=== PATIENT | male | born 1935 | race Caucasian/White ===

== ENCOUNTER 2020-05-25 13:05 | Inpatient (IN) | payer MEDICARE, OTHER ==
--- NOTE | 2020-05-25 15:29 | CR ---
CHEST: 2 view CLINICAL HISTORY:Shortness of breath, leukocytosis COMPARISON:None FINDINGS: Heart size is normal. Pulmonary vascularity is mildly cephalized. This may be chronic. There is some patchy density seen posteriorly on the lateral image. There is some increased lung markings in both lung bases on the PA. There are no effusions. There are atherosclerotic changes in the aorta. IMPRESSION: Increased lung markings in both bases are suspect for pneumonia
--- NOTE | 2020-05-25 17:02 | EDM.PDOC ---
ED HPI GENERAL MEDICAL PROBLEM - General Chief Complaint: General Stated Complaint: CHILLS Time Seen by Provider: 05/25/20 16:58 Source of Information: Reports: Patient, Family History Limitations: Reports: No Limitations - History of Present Illness INITIAL COMMENTS - FREE TEXT/NARRATIVE: pt had shaking chills and sweats during the nite. He had some pain in his left chest with deep breathing yesterday. Today that discomfort is better. r Onset: Other ( started yesterday, He had chills all nite, ) Duration: Hour(s): Location: Reports: Chest, Other (pt did feel sob and he has some pain when he took a deep breath in the left chest. ) Associated Symptoms: Reports: Cough, Fever/Chills, Shortness of Breath, Weakness - Related Data Allergies Allergy/AdvReac Type Severity Reaction Status Date / Time MAYNOR Inhibitors Allergy Swelling Verified 08/07/18 07:06 sulfamethoxazole Allergy Swelling Verified 08/07/18 07:06 [From ] trimethoprim [From ] Allergy Swelling Verified 08/07/18 07:06 Home Meds: Home Meds Furosemide [Lasix] 80 mg PO DAILY 10/19/13 [History] Garlic 1,000 mg PO BID 10/19/13 [History] Insulin Glargine,Hum.Rec.Anlog [Lantus Solostar] 70 units SUBCUT DAILY 10/19/13 [History] Insulin Lispro [Humalog] 40 units SQ TID 10/19/13 [History] Isosorbide Mononitrate [Imdur] 30 mg PO DAILY 10/19/13 [History] Multivitamins 1 each PO DAILY 10/19/13 [History] [place]-3 Fatty Acids [[place]-3] 1,000 mg PO TID 10/19/13 [History] Psyllium Husk [Metamucil] 1 cap PO DAILY 10/19/13 [History] Rosuvastatin [Crestor] 20 mg PO BEDTIME 10/19/13 [History] Allopurinol [Zyloprim] 100 mg PO DAILY 09/22/15 [History] Cholecalciferol (Vitamin D3) [Vitamin D3] 2,000 unit PO BID 09/22/15 [History] Cinnamon Bark [Cinnamon] 1,000 mg PO BID 09/22/15 [History] Spironolactone [Aldactone] 25 mg PO DAILY 09/22/15 [History] Aspirin [Adult Low Dose Aspirin EC] 81 mg PO DAILY 01/29/18 [History] Metoprolol Tartrate [Lopressor] 50 mg PO DAILY 01/29/18 [History] Omeprazole 40 mg PO DAILY 01/29/18 [History] amLODIPine Besylate [Amlodipine Besylate] 5 mg PO BID 01/29/18 [History] Umeclidinium Brm/Vilanterol Tr [Anoro Ellipta 62.5-25 MCG] 1 puff INH DAILY 06/18/18 [History] metFORMIN [Glucophage] 500 mg PO BID 06/18/18 [History] Furosemide [Lasix] 40 mg PO DAILY 05/25/20 [History] Gabapentin [Neurontin] 100 mg PO TID 05/25/20 [History] Latanoprost [Xalatan 0.005% Ophth Soln] 1 drop EYEBOTH BEDTIME 05/25/20 [History] Metoprolol Tartrate [Lopressor] 25 mg PO BEDTIME 05/25/20 [History] Past Medical History HEENT History: Reports: Cataract, Glaucoma, Impaired Vision Other HEENT History: wears glasses Cardiovascular History: Reports: Heart Failure, High Cholesterol, Hypertension, [place], SOB on Exertion Respiratory History: Reports: COPD, SOB Gastrointestinal History: Reports: Colon Polyp, GERD, Hemorrhoids Genitourinary History: Reports: Chronic Renal Insuffiency, Prostate Disorder Other Genitourinary History: stage 3 kidney disease Musculoskeletal History: Reports: Back Pain, Chronic, Fracture Neurological History: Reports: Concussion Endocrine/Metabolic History: Reports: Diabetes, Type II, Hyperparathyroidism, Obesity/BMI 30+ - Infectious Disease History Infectious Disease History: Reports: Chicken Pox, Measles, Mumps Other Infectious Disease History: unknown - Past Surgical History HEENT Surgical History: Reports: Cataract Surgery GI Surgical History: Reports: Colonoscopy, Polypectomy Male Surgical History: Reports: Circumcision, TURP-Transurethral Resection of Prostate Endocrine Surgical History: Reports: Parathyroidectomy Social & Family History - Tobacco Use Smoking Status *Q: Never Smoker - Caffeine Use Caffeine Use: Reports: None - Recreational Drug Use Recreational Drug Use: No ED ROS GENERAL - Review of Systems Review Of Systems: See Below Constitutional: Reports: Fever, Chills, Malaise HEENT: Reports: No Symptoms Respiratory: Reports: Shortness of Breath, Pleuritic Chest Pain, Other (pain was on the left side. ) Cardiovascular: Reports: No Symptoms Endocrine: Reports: No Symptoms GI/Abdominal: Reports: No Symptoms : Reports: No Symptoms Musculoskeletal: Reports: No Symptoms Skin: Reports: No Symptoms ED EXAM, GENERAL - Physical Exam Exam: See Below Free Text/Narrative:: pt arrived with sob and pleuritic chest pain on the left. He had shaing chills during the nite. Exam Limited By: No Limitations General Appearance: Alert, No Apparent Distress, Anxious, Other (pt does not have thepleuritic chest pain tody, ) Ears: Normal TMs Nose: Normal Inspection Throat/Mouth: Normal Inspection Head: Atraumatic Neck: Normal Inspection Respiratory/Chest: No Respiratory Distress, Other ( rales at the lung bases) Cardiovascular: Regular Rate, Rhythm GI/Abdominal: Soft, Non-Tender (Male) Exam: Deferred Rectal (Males) Exam: Deferred Back Exam: Normal Inspection Extremities: Normal Inspection Neurological: Alert, Oriented, Normal Cognition Course - Vital Signs Last Recorded V/S: Last Vital Signs Temp 37.7 C 05/25/20 15:40 Pulse 93 05/25/20 15:40 Resp 18 05/25/20 15:40 BP 136/77 05/25/20 15:40 Pulse Ox 92 L 05/25/20 15:40 - Orders/Labs/Meds Orders: Active Orders 24 hr Category Date Time Status HUMAN GRANULOCYTIC AZAM-HGE Stat Lab 05/25/20 14:30 Received LYME, TOTAL AB TEST/REFLEX Stat Lab 05/25/20 14:30 Received Labs: Laboratory Tests 05/25/20 05/25/20 05/25/20 Range/Units 14:23 14:23 14:31 WBC 15.2 H (4.5-11.0) K/uL RBC 5.27 (4.30-5.90) M/uL Hgb 15.0 D (12.0-15.0) g/dL Hct 43.6 (40.0-54.0) % MCV 83 (80-98) fL MCH 29 (27-31) pg MCHC 34 (32-36) % Plt Count 161 (150-400) K/uL Neut % (Auto) 84 H (36-66) % Lymph % (Auto) 6 L (24-44) % [place] % (Auto) 7 H (2-6) % Eos % (Auto) 3 (2-4) % Baso % (Auto) 0 (0-1) % Sodium 134 L (140-148) mmol/L Potassium 4.7 (3.6-5.2) mmol/L Chloride 97 L (100-108) mmol/L Carbon Dioxide 25 (21-32) mmol/L Anion Gap 16.7 H (5.0-14.0) mmol/L BUN 21 H (7-18) mg/dL Creatinine 1.4 H (0.8-1.3) mg/dL Est Cr Clr Drug Dosing 40.56 mL/min Estimated GFR (MDRD) 48 L (>60) Glucose 186 H (74-106) mg/dL Calcium 9.5 (8.5-10.1) mg/dL Total Bilirubin 1.4 H D (0.2-1.0) mg/dL AST 94 H (15-37) U/L ALT 44 (12-78) U/L Alkaline Phosphatase 81 (46-116) U/L C-Reactive Protein 8.71 H (0.0-0.3) mg/dL Total Protein 7.8 (6.4-8.2) g/dL Albumin 3.5 (3.4-5.0) g/dL Globulin 4.3 H (2.3-3.5) g/dL Albumin/Globulin Ratio 0.8 L (1.2-2.2) Urine Color (YELLOW) Urine Appearance (CLEAR) Urine pH (5.0-8.0) Ur Specific [place] (1.008-1.030) Urine Protein (NEGATIVE) mg/dL Urine Glucose (UA) (NEGATIVE) mg/dL Urine Ketones (NEGATIVE) mg/dL Urine Occult Blood (NEGATIVE) Urine Nitrite (NEGATIVE) Urine Bilirubin (NEGATIVE) Urine Urobilinogen (0.2-1.0) EU/dL Ur Leukocyte Esterase (NEGATIVE) Urine RBC (0-5) Urine WBC (0-5) Ur Epithelial Cells Amorphous Sediment Urine Bacteria Urine Mucus SARS-CoV-2 RNA (ATUL) (NEGATIVE) 05/25/20 05/25/20 Range/Units 15:53 16:06 WBC (4.5-11.0) K/uL RBC (4.30-5.90) M/uL Hgb (12.0-15.0) g/dL Hct (40.0-54.0) % MCV (80-98) fL MCH (27-31) pg MCHC (32-36) % Plt Count (150-400) K/uL Neut % (Auto) (36-66) % Lymph % (Auto) (24-44) % [place] % (Auto) (2-6) % Eos % (Auto) (2-4) % Baso % (Auto) (0-1) % Sodium (140-148) mmol/L Potassium (3.6-5.2) mmol/L Chloride (100-108) mmol/L Carbon Dioxide (21-32) mmol/L Anion Gap (5.0-14.0) mmol/L BUN (7-18) mg/dL Creatinine (0.8-1.3) mg/dL Est Cr Clr Drug Dosing mL/min Estimated GFR (MDRD) (>60) Glucose (74-106) mg/dL Calcium (8.5-10.1) mg/dL Total Bilirubin (0.2-1.0) mg/dL AST (15-37) U/L ALT (12-78) U/L Alkaline Phosphatase (46-116) U/L C-Reactive Protein (0.0-0.3) mg/dL Total Protein (6.4-8.2) g/dL Albumin (3.4-5.0) g/dL Globulin (2.3-3.5) g/dL Albumin/Globulin Ratio (1.2-2.2) Urine Color [place] A (YELLOW) Urine Appearance Clear (CLEAR) Urine pH 5.0 (5.0-8.0) Ur Specific [place] 1.020 (1.008-1.030) Urine Protein 100 H (NEGATIVE) mg/dL Urine Glucose (UA) Negative (NEGATIVE) mg/dL Urine Ketones Negative (NEGATIVE) mg/dL Urine Occult Blood Trace-lysed H (NEGATIVE) Urine Nitrite Negative (NEGATIVE) Urine Bilirubin Negative (NEGATIVE) Urine Urobilinogen 0.2 (0.2-1.0) EU/dL Ur Leukocyte Esterase Negative (NEGATIVE) Urine RBC 0-5 (0-5) Urine WBC 0-5 (0-5) Ur Epithelial Cells Few Amorphous Sediment Few Urine Bacteria Not seen Urine Mucus Rare SARS-CoV-2 RNA (ATUL) Negative (NEGATIVE) - Re-Assessments/Exams Free Text/Narrative Re-Assessment/Exam: 05/25/20 17:05 pt has a low grade temp. History of shaking chills during the nite. He has a bilateral pneumonia on xray. His wbc is 15,000, He diod have a Covid which was neg. Departure - Departure Time of Disposition: 17:06 Disposition: Admitted As Inpatient 67 Condition: Fair Clinical Impression: Bilateral pneumonia - Discharge Information Referrals: Alber Carver MD [Primary Care Provider] - Care Plan Goals: admit to Dr cook Sepsis Event Note (ED) - Evaluation Sepsis Screening Result: No Definite Risk - Focused Exam Vital Signs: Vital Signs Temp Pulse Resp BP Pulse Ox 05/25/20 15:40 37.7 C 93 18 136/77 92 L 05/25/20 15:24 93 136/77 92 L 05/25/20 14:12 37.7 C 99 18 129/91 H 93 L - My Orders Last 24 Hours: My Active Orders 05/25/20 14:30 HUMAN GRANULOCYTIC AZAM-HGE Stat LYME, TOTAL AB TEST/REFLEX Stat - Assessment/Plan Last 24 Hours: My Active Orders 05/25/20 14:30 HUMAN GRANULOCYTIC AZAM-HGE Stat LYME, TOTAL AB TEST/REFLEX Stat
[2020-05-25] MEDS: cefTRIAXone 1 GM in Sodium Chloride 0.9% 50 ML IV SCH (18:39)
--- NOTE | 2020-05-25 18:41 | PCM.HP.2 ---
H&P History of Present Illness - General Date of Service: 05/25/20 Admit Problem/Dx: Admission Diagnosis/Problem Admission Diagnosis/Problem Pneumonia Source of Information: Patient, Family, Old Records, Provider, RN Notes Reviewed History Limitations: Reports: No Limitations - History of Present Illness Initial Comments - Free Text/Narative: Mr. Wells is an 85-year-old gentleman who was admitted through the emergency department with chills, shortness of breath, and weakness, secondary to bilateral pneumonia. He was in his usual state of health yesterday until the e vening. At night he noted symptoms of chills and since then is developed some weakness and increased shortness of breath from baseline. He does have a daily cough that is not significantly worse over the last 24 hours. Because of symptoms he presented to the emergency department for further evaluation. White blood cell count is found to be elevated with an associated elevation in CRP. Chest x-ray does show evidence of bibasilar infiltrates consistent with pneumonia. Testing for COVID 19 is negative. Blood cultures have been ordered as well as antibiotic therapy. He has received some IV fluids in the emergency department, presently there is no evidence of significant sepsis. - Related Data Allergies/Adverse Reactions: Allergies Allergy/AdvReac Type Severity Reaction Status Date / Time MAYNOR Inhibitors Allergy Swelling Verified 08/07/18 07:06 sulfamethoxazole Allergy Swelling Verified 08/07/18 07:06 [From ] trimethoprim [From ] Allergy Swelling Verified 08/07/18 07:06 Home Medications: Home Meds Furosemide [Lasix] 80 mg PO DAILY 10/19/13 [History] Garlic 1,000 mg PO BID 10/19/13 [History] Insulin Glargine,Hum.Rec.Anlog [Lantus Solostar] 70 units SUBCUT DAILY 10/19/13 [History] Insulin Lispro [Humalog] 40 units SQ TID 10/19/13 [History] Isosorbide Mononitrate [Imdur] 30 mg PO DAILY 10/19/13 [History] Multivitamins 1 each PO DAILY 10/19/13 [History] [place]-3 Fatty Acids [[place]-3] 1,000 mg PO TID 10/19/13 [History] Psyllium Husk [Metamucil] 1 cap PO DAILY 10/19/13 [History] Rosuvastatin [Crestor] 20 mg PO BEDTIME 10/19/13 [History] Allopurinol [Zyloprim] 100 mg PO DAILY 09/22/15 [History] Cholecalciferol (Vitamin D3) [Vitamin D3] 2,000 unit PO BID 09/22/15 [History] Cinnamon Bark [Cinnamon] 1,000 mg PO BID 09/22/15 [History] Spironolactone [Aldactone] 25 mg PO DAILY 09/22/15 [History] Aspirin [Adult Low Dose Aspirin EC] 81 mg PO DAILY 01/29/18 [History] Metoprolol Tartrate [Lopressor] 50 mg PO DAILY 01/29/18 [History] Omeprazole 40 mg PO DAILY 01/29/18 [History] amLODIPine Besylate [Amlodipine Besylate] 5 mg PO BID 01/29/18 [History] Umeclidinium Brm/Vilanterol Tr [Anoro Ellipta 62.5-25 MCG] 1 puff INH DAILY 06/18/18 [History] metFORMIN [Glucophage] 500 mg PO BID 06/18/18 [History] Furosemide [Lasix] 40 mg PO DAILY 05/25/20 [History] Gabapentin [Neurontin] 100 mg PO TID 05/25/20 [History] Latanoprost [Xalatan 0.005% Ophth Soln] 1 drop EYEBOTH BEDTIME 05/25/20 [History] Metoprolol Tartrate [Lopressor] 25 mg PO BEDTIME 05/25/20 [History] Past Medical History HEENT History: Reports: Cataract, Glaucoma, Impaired Vision Other HEENT History: wears glasses Cardiovascular History: Reports: Heart Failure, High Cholesterol, Hypertension, [place], SOB on Exertion Respiratory History: Reports: COPD, SOB Gastrointestinal History: Reports: Colon Polyp, GERD, Hemorrhoids Genitourinary History: Reports: Chronic Renal Insuffiency, Prostate Disorder Other Genitourinary History: stage 3 kidney disease Musculoskeletal History: Reports: Back Pain, Chronic, Fracture Neurological History: Reports: Concussion Endocrine/Metabolic History: Reports: Diabetes, Type II, Hyperparathyroidism, Obesity/BMI 30+ - Infectious Disease History Infectious Disease History: Reports: Chicken Pox, Measles, Mumps Other Infectious Disease History: unknown - Past Surgical History HEENT Surgical History: Reports: Cataract Surgery GI Surgical History: Reports: Colonoscopy, Polypectomy Male Surgical History: Reports: Circumcision, TURP-Transurethral Resection of Prostate Endocrine Surgical History: Reports: Parathyroidectomy Social & Family History - Tobacco Use Smoking Status *Q: Never Smoker - Caffeine Use Caffeine Use: Reports: None - Recreational Drug Use Recreational Drug Use: No H&P Review of Systems - Review of Systems: Review Of Systems: See Below General: Reports: Chills, Malaise, Weakness, Fatigue HEENT: Reports: No Symptoms Pulmonary: Reports: Shortness of Breath, Cough, Sputum. Denies: Wheezing, Pleuritic Chest Pain, Hemoptysis Cardiovascular: Reports: Dyspnea on Exertion. Denies: Chest Pain, Palpitations, Orthopnea, PND, Edema, Lightheadedness Gastrointestinal: Reports: No Symptoms Genitourinary: Reports: No Symptoms Musculoskeletal: Reports: No Symptoms Skin: Reports: No Symptoms Psychiatric: Reports: No Symptoms Neurological: Reports: No Symptoms Hematologic/Lymphatic: Reports: No Symptoms Immunologic: Reports: No Symptoms Exam - Exam Exam: See Below - Vital Signs Vital Signs: Last Vital Signs Temp 99.8 F 05/25/20 15:40 Pulse 117 H 05/25/20 16:39 Resp 18 05/25/20 16:39 BP 151/74 H 05/25/20 16:39 Pulse Ox 93 L 05/25/20 16:39 Weight: 280 lb - Exam Quality Assessment: DVT Prophylaxis General: Alert, Oriented, Cooperative, Moderate Distress HEENT: Conjunctiva Clear, Hearing Intact, Normal Nasal Septum, Posterior Pharynx Clear, Pupils Equal. No: Mucosa Moist & [place] Neck: Supple, Trachea Midline Lungs: Normal Respiratory Effort, Decreased Breath Sounds. No: Rales, Rhonchi, Wheezing Cardiovascular: Regular Rate, Regular Rhythm, Normal S1, Normal S2. No: Systolic Murmur, Diastolic Murmur GI/Abdominal Exam: Soft, Non-Tender, No Organomegaly, No Distention Extremities: Non-Tender, No Pedal Edema Skin: Warm, Dry, Intact Neurological: Cranial Nerves Intact, Strength Equal Bilateral, Normal Speech, Normal Tone, Sensation Intact. No: Focal Deficit Neuro Extensive - Mental Status: Alert, Oriented x3, Normal Mood/Affect, Normal Cognition, Memory Intact - Patient Data Lab Results Last 24 hrs: Laboratory Results - last 24 hr 05/25/20 05/25/20 05/25/20 Range/Units 14:23 14:23 14:31 WBC 15.2 H (4.5-11.0) K/uL RBC 5.27 (4.30-5.90) M/uL Hgb 15.0 D (12.0-15.0) g/dL Hct 43.6 (40.0-54.0) % MCV 83 (80-98) fL MCH 29 (27-31) pg MCHC 34 (32-36) % Plt Count 161 (150-400) K/uL Neut % (Auto) 84 H (36-66) % Lymph % (Auto) 6 L (24-44) % [place] % (Auto) 7 H (2-6) % Eos % (Auto) 3 (2-4) % Baso % (Auto) 0 (0-1) % Sodium 134 L (140-148) mmol/L Potassium 4.7 (3.6-5.2) mmol/L Chloride 97 L (100-108) mmol/L Carbon Dioxide 25 (21-32) mmol/L Anion Gap 16.7 H (5.0-14.0) mmol/L BUN 21 H (7-18) mg/dL Creatinine 1.4 H (0.8-1.3) mg/dL Est Cr Clr Drug Dosing 40.56 mL/min Estimated GFR (MDRD) 48 L (>60) Glucose 186 H (74-106) mg/dL Calcium 9.5 (8.5-10.1) mg/dL Total Bilirubin 1.4 H D (0.2-1.0) mg/dL AST 94 H (15-37) U/L ALT 44 (12-78) U/L Alkaline Phosphatase 81 (46-116) U/L C-Reactive Protein 8.71 H (0.0-0.3) mg/dL Total Protein 7.8 (6.4-8.2) g/dL Albumin 3.5 (3.4-5.0) g/dL Globulin 4.3 H (2.3-3.5) g/dL Albumin/Globulin Ratio 0.8 L (1.2-2.2) Urine Color (YELLOW) Urine Appearance (CLEAR) Urine pH (5.0-8.0) Ur Specific [place] (1.008-1.030) Urine Protein (NEGATIVE) mg/dL Urine Glucose (UA) (NEGATIVE) mg/dL Urine Ketones (NEGATIVE) mg/dL Urine Occult Blood (NEGATIVE) Urine Nitrite (NEGATIVE) Urine Bilirubin (NEGATIVE) Urine Urobilinogen (0.2-1.0) EU/dL Ur Leukocyte Esterase (NEGATIVE) Urine RBC (0-5) Urine WBC (0-5) Ur Epithelial Cells Amorphous Sediment Urine Bacteria Urine Mucus SARS-CoV-2 RNA (ATUL) (NEGATIVE) 05/25/20 05/25/20 Range/Units 15:53 16:06 WBC (4.5-11.0) K/uL RBC (4.30-5.90) M/uL Hgb (12.0-15.0) g/dL Hct (40.0-54.0) % MCV (80-98) fL MCH (27-31) pg MCHC (32-36) % Plt Count (150-400) K/uL Neut % (Auto) (36-66) % Lymph % (Auto) (24-44) % [place] % (Auto) (2-6) % Eos % (Auto) (2-4) % Baso % (Auto) (0-1) % Sodium (140-148) mmol/L Potassium (3.6-5.2) mmol/L Chloride (100-108) mmol/L Carbon Dioxide (21-32) mmol/L Anion Gap (5.0-14.0) mmol/L BUN (7-18) mg/dL Creatinine (0.8-1.3) mg/dL Est Cr Clr Drug Dosing mL/min Estimated GFR (MDRD) (>60) Glucose (74-106) mg/dL Calcium (8.5-10.1) mg/dL Total Bilirubin (0.2-1.0) mg/dL AST (15-37) U/L ALT (12-78) U/L Alkaline Phosphatase (46-116) U/L C-Reactive Protein (0.0-0.3) mg/dL Total Protein (6.4-8.2) g/dL Albumin (3.4-5.0) g/dL Globulin (2.3-3.5) g/dL Albumin/Globulin Ratio (1.2-2.2) Urine Color [place] A (YELLOW) Urine Appearance Clear (CLEAR) Urine pH 5.0 (5.0-8.0) Ur Specific [place] 1.020 (1.008-1.030) Urine Protein 100 H (NEGATIVE) mg/dL Urine Glucose (UA) Negative (NEGATIVE) mg/dL Urine Ketones Negative (NEGATIVE) mg/dL Urine Occult Blood Trace-lysed H (NEGATIVE) Urine Nitrite Negative (NEGATIVE) Urine Bilirubin Negative (NEGATIVE) Urine Urobilinogen 0.2 (0.2-1.0) EU/dL Ur Leukocyte Esterase Negative (NEGATIVE) Urine RBC 0-5 (0-5) Urine WBC 0-5 (0-5) Ur Epithelial Cells Few Amorphous Sediment Few Urine Bacteria Not seen Urine Mucus Rare SARS-CoV-2 RNA (ATUL) Negative (NEGATIVE) Result Diagrams: 05/25/20 14:23 05/25/20 14:23 Sepsis Event Note - Evaluation Sepsis Screening Result: No Definite Risk - Focused Exam Vital Signs: Vital Signs Temp Pulse Resp BP Pulse Ox 05/25/20 16:39 117 H 18 151/74 H 93 L 05/25/20 15:40 99.8 F 93 18 136/77 92 L 05/25/20 15:24 93 136/77 92 L 05/25/20 14:12 99.8 F 99 18 129/91 H 93 L *Q Meaningful Use (ADM) - VTE Risk Assess *Q Each Risk Factor Represents 1 Point: Swollen Legs, Current, Obesity ( BMI > 25 kg/m2), Congestive heart failure (CHF), Serious lung disease including pneumonia Total Score 1 Point Risk Factors: 4 Each Risk Factor Represents 2 Points: None Total Score 2 Point Risk Factors: 0 Each Risk Factor Represents 3 Points: Age 75 Years or Greater Total Score 3 Point Risk Factors: 3 Each Risk Factor Represents 5 Points: None Total Score 5 Point Risk Factors: 0 Venous Thromboembolism Risk Factor Score *Q: 7 Problem List Initiated/Reviewed/Updated: Yes Orders Last 24hrs: Active Orders 24 hr Category Date Time Status Patient Status Manage Transfer [TRANSFER] Routine ADT 05/25/20 18:21 Ordered CULTURE BLOOD [BC] Stat Lab 05/25/20 18:18 Ordered CULTURE BLOOD [BC] Stat Lab 05/25/20 18:18 Ordered HUMAN GRANULOCYTIC AZAM-HGE Stat Lab 05/25/20 14:30 Received LYME, TOTAL AB TEST/REFLEX Stat Lab 05/25/20 14:30 Received Levofloxacin/Dextrose 5%-Water [Levaquin in D5W 750 MG/ Med 05/25/20 18:00 Active 150 ML] 750 mg Premix Bag 1 bag IV Q48H [id number] [Rocephin] 1 gm Med 05/25/20 18:00 Active Sodium Chloride 0.9% [Normal Saline] 50 ml IV Q24H Blood Culture x2 Reflex Set [OM.PC] Urgent Oth 05/25/20 18:18 Ordered Resuscitation Status Routine Resus Stat 05/25/20 18:25 Ordered Medication Orders Ceftriaxone Sodium 1 gm/ (Sodium Chloride) 50 mls @ 100 mls/hr IV Q24H [place] Levofloxacin/Dextrose 750 mg/ (Premix) 150 mls @ 100 mls/hr IV Q48H [place] Assessment/Plan Comment:: ASSESSMENT AND PLAN BILATERAL PNEUMONIA-associated with chills, leukocytosis, increased shortness of breath from baseline, weakness, and bibasilar infiltrates on chest x-ray. Approximate 2 months ago he did receive antibiotic therapy for urinary tract infection. No evidence of sepsis on admission. COVID-19 is negative. -IV fluids for hydration -Blood cultures pending -Sputum culture pending -Probiotic therapy -Expanded antibiotic coverage; ceftriaxone and levofloxacin, pending culture results -Influenza a and B antigens pending -Supplemental oxygen and nebulizer therapy as needed TYPE 2 DIABETES MELLITUS -Continue outpatient insulin and metformin -4 times daily glucometers -Moderate dose sliding scale Humalog CONGESTIVE HEART FAILURE-by history well compensated -Cautious use of IV fluids -Continue outpatient medications CHRONIC KIDNEY DISEASE STAGE IIIa -Closely monitor urine output and renal function MAINTENANCE ISSUES -DVT prophylaxis; Lovenox 40 mg subcu daily -GI prophylaxis; continue outpatient PPI therapy -[place] catheter; not indicated -Nutrition; consistent carbohydrate diet -Nicotine dependence; not required CODE STATUS-DNR/DNI ADMISSION STATUS-patient will be admitted to inpatient status, expect at least a 2 night hospital stay for evaluation and management of problems as outlined above. At the time of this admission I do not reasonably expected evaluation and management of this problem will require more than a 96 hour hospital stay. DISPOSITION-anticipate discharge to home after the hospital stay. PRIMARY CARE PROVIDER-Dr. Carver - Mortality Measure Prognosis:: Good
[2020-05-25] MEDS: Levofloxacin/Dextrose 5%-Water 750 MG in Premix Bag 1 BAG IV SCH (19:08)
[2020-05-25] MEDS ORDERED: 50% Dextrose in Water 50 ML Syringe IV PRN (19:29)
[2020-05-25] MEDS ORDERED: oxyCODONE 5 MG Tab PO PRN (19:29)
[2020-05-25] MEDS ORDERED: Albuterol 0.083% 2.5 MG/3 ML Neb Soln NEB PRN (19:29)
[2020-05-25] MEDS ORDERED: Enoxaparin 40 MG/0.4 ML Syringe SUBCUT SCH (19:29)
[2020-05-25] MEDS ORDERED: Glucose Gel 15 GM in 37.5 GM Tube PO PRN (19:29)
[2020-05-25] MEDS ORDERED: Sodium Chloride 0.9% 10 ML Syringe FLUSH PRN (19:29)
[2020-05-25] MEDS ORDERED: Ondansetron 4 MG/2 ML SDV IV PRN (19:29)
[2020-05-25] MEDS ORDERED: Polyethylene Glycol 3350 Powder 17 GM Packet PO PRN (19:29)
[2020-05-25] MEDS: Isosorbide Mononitrate 30 MG Tab.ER PO SCH (20:03)
[2020-05-25] MEDS: Aspirin 81 MG Tab.EC PO SCH (20:03)
[2020-05-25] MEDS: Allopurinol 100 MG Tab PO SCH (20:05)
[2020-05-25] MEDS: Lactobacillus Rhamnosus GG (Probiotic) Cap PO SCH (20:06)
[2020-05-25] MEDS: Acetaminophen 325 MG Tab PO PRN (20:07)
[2020-05-25] MEDS: Gabapentin 100 MG Cap PO SCH (20:07)
[2020-05-25] MEDS: metFORMIN 500 MG Tab PO SCH (20:08)
[2020-05-25] MEDS: Rosuvastatin 10 MG Tab PO SCH (20:08)
[2020-05-25] MEDS: amLODIPine 5 MG Tab PO SCH (20:09)
[2020-05-25] MEDS: Metoprolol Tartrate 25 MG Tab PO SCH (20:09)
[2020-05-25] MEDS: Sodium Chloride 0.9% 1,000 ML IV SCH (20:10)
[2020-05-25] MEDS: Latanoprost 0.005% Ophth Soln 2.5 ML Bottle EYEBOTH SCH (20:16)
[2020-05-25] MEDS: Insulin Lispro 100 Unit/ML 3 ML KwikPen SUBCUT SCH (21:27)
[2020-05-25] MEDS: Insulin Glargine,Human Rec. Analog 100 Units/ML 3 ML Pen SUBCUT SCH (21:28)
[2020-05-26] MEDS: Acetaminophen 325 MG Tab PO PRN ×2 (07:46→18:40)
[2020-05-26] MEDS: Insulin Lispro 100 Unit/ML 3 ML KwikPen SUBCUT SCH ×7 (08:30→21:19)
[2020-05-26] MEDS ORDERED: Potassium Chloride 20 MEQ Tab.ER PO ONE (09:00)
[2020-05-26] MEDS ORDERED: Non-Formulary Medication 1 Each (Omeprazole [Omeprazole] 40 MG) PO SCH (09:00)
[2020-05-26] MEDS: Spironolactone 25 MG Tab PO SCH (09:12)
[2020-05-26] MEDS: Furosemide 40 MG Tab PO SCH (09:12)
[2020-05-26] MEDS: Allopurinol 100 MG Tab PO SCH (09:13)
[2020-05-26] MEDS: Isosorbide Mononitrate 30 MG Tab.ER PO SCH (09:14)
[2020-05-26] MEDS: Aspirin 81 MG Tab.EC PO SCH (09:16)
[2020-05-26] MEDS: Metoprolol Tartrate 50 MG Tab PO SCH (09:16)
[2020-05-26] MEDS: Gabapentin 100 MG Cap PO SCH ×3 (09:20→21:24)
[2020-05-26] MEDS: Lactobacillus Rhamnosus GG (Probiotic) Cap PO SCH ×2 (09:20→21:26)
[2020-05-26] MEDS: Pantoprazole 40 MG Tab.CR PO SCH (09:21)
[2020-05-26] MEDS: amLODIPine 5 MG Tab PO SCH ×2 (09:22→21:25)
[2020-05-26] MEDS: metFORMIN 500 MG Tab PO SCH ×2 (09:23→18:26)
[2020-05-26] MEDS: Psyllium Husk Powder Sugar Free 5.85 GM Packet PO SCH ×2 (09:27→12:46)
[2020-05-26] MEDS: Insulin Glargine,Human Rec. Analog 100 Units/ML 3 ML Pen SUBCUT SCH (09:47)
[2020-05-26] MEDS: Sodium Chloride 0.9% 1,000 ML IV SCH (10:14)
--- NOTE | 2020-05-26 16:32 | PCM.PN ---
- General Info Date of Service: 05/26/20 Subjective Update: Mr. Wells has been stable since admission, he did have mild temperature elevation documented yesterday after admission. White blood cell count has improved and level of dyspnea is stable. Vital signs have otherwise been within desired range and he has experienced no significant hypoxia. Functional Status: Reports: Tolerating Diet, Ambulating, Urinating - Review of Systems General: Reports: Fever, Weakness, Chills Pulmonary: Reports: Shortness of Breath. Denies: Pleuritic Chest Pain, Cough, Sputum, Hemoptysis, Wheezing Cardiovascular: Reports: Dyspnea on Exertion. Denies: Chest Pain, Palpitations, Orthopnea, PND, Edema, Lightheadedness Gastrointestinal: Reports: No Symptoms - Patient Data Vitals - Most Recent: Last Vital Signs Temp 99.2 F 05/26/20 14:37 Pulse 83 05/26/20 14:37 Resp 16 05/26/20 14:37 BP 103/48 L 05/26/20 14:37 Pulse Ox 94 L 05/26/20 14:37 Weight - Most Recent: 270 lb 4.799 oz I&O - Last 24 Hours: Intake & Output 05/26/20 05/26/20 05/26/20 06:59 14:59 22:59 Intake Total 865 240 Balance 865 240 Lab Results Last 24 Hours: Laboratory Results - last 24 hr 05/25/20 05/25/20 05/26/20 Range/Units 15:53 21:00 04:28 WBC 11.2 H (4.5-11.0) K/uL RBC 4.56 (4.30-5.90) M/uL Hgb 13.1 (12.0-15.0) g/dL Hct 37.9 L (40.0-54.0) % MCV 83 (80-98) fL MCH 29 (27-31) pg MCHC 35 (32-36) % Plt Count 202 (150-400) K/uL Neut % (Auto) 79 H (36-66) % Lymph % (Auto) 13 L (24-44) % [place] % (Auto) 8 H (2-6) % Eos % (Auto) 0 L (2-4) % Baso % (Auto) 0 (0-1) % Sodium (140-148) mmol/L Potassium (3.6-5.2) mmol/L Chloride (100-108) mmol/L Carbon Dioxide (21-32) mmol/L Anion Gap (5.0-14.0) mmol/L BUN (7-18) mg/dL Creatinine (0.8-1.3) mg/dL Est Cr Clr Drug Dosing mL/min Estimated GFR (MDRD) (>60) Glucose (74-106) mg/dL POC Glucose 213 H (74-106) MG/DL Calcium (8.5-10.1) mg/dL Magnesium (1.8-2.4) mg/dL SARS-CoV-2 RNA (ATUL) Negative (NEGATIVE) 05/26/20 05/26/20 05/26/20 Range/Units 04:28 07:30 11:35 WBC (4.5-11.0) K/uL RBC (4.30-5.90) M/uL Hgb (12.0-15.0) g/dL Hct (40.0-54.0) % MCV (80-98) fL MCH (27-31) pg MCHC (32-36) % Plt Count (150-400) K/uL Neut % (Auto) (36-66) % Lymph % (Auto) (24-44) % [place] % (Auto) (2-6) % Eos % (Auto) (2-4) % Baso % (Auto) (0-1) % Sodium 133 L (140-148) mmol/L Potassium 3.4 L (3.6-5.2) mmol/L Chloride 98 L (100-108) mmol/L Carbon Dioxide 23 (21-32) mmol/L Anion Gap 15.4 H (5.0-14.0) mmol/L BUN 23 H (7-18) mg/dL Creatinine 1.4 H (0.8-1.3) mg/dL Est Cr Clr Drug Dosing 40.56 mL/min Estimated GFR (MDRD) 48 L (>60) Glucose 137 H (74-106) mg/dL POC Glucose 153 H 133 H (74-106) MG/DL Calcium 8.8 (8.5-10.1) mg/dL Magnesium 1.8 (1.8-2.4) mg/dL SARS-CoV-2 RNA (ATUL) (NEGATIVE) Ranjit Results Last 24 Hours: Microbiology 05/25/20 19:29 Influenza Type A Antigen Screen - Final Nasal, Unspecified NEGATIVE INFLUENZA A VIRUS AG REFERENCE RANGE: NEGATIVE Influenza Type B Antigen Screen - Final NEGATIVE INFLUENZA B VIRUS AG REFERENCE RANGE: NEGATIVE Med Orders - Current: Current Medications Acetaminophen (Tylenol) 650 mg PO Q4H PRN PRN Reason: Pain (Mild 1-3)/fever Last Admin: 05/26/20 07:46 Dose: 650 mg Documented by: Albuterol (Proventil Neb Soln) 2.5 mg NEB Q4H PRN PRN Reason: Shortness Of Breath/wheezing Allopurinol (Zyloprim) 100 mg PO DAILY [facility] Last Admin: 05/26/20 09:13 Dose: 100 mg Documented by: Amlodipine Besylate (Norvasc) 5 mg PO BID [facility] Last Admin: 05/26/20 09:22 Dose: 5 mg Documented by: Aspirin (Halfprin) 81 mg PO DAILY [facility] Last Admin: 05/26/20 09:16 Dose: 81 mg Documented by: Dextrose (Glutose 15) 15 gm PO ONETIME PRN PRN Reason: Hypoglycemia Dextrose/Water (Dextrose 50% In Water) 50 ml IV ONETIME PRN PRN Reason: Hypoglycemia Enoxaparin Sodium (Lovenox) 40 mg SUBCUT Q24H [facility] Furosemide (Lasix) 80 mg PO DAILY [facility] Last Admin: 05/26/20 09:12 Dose: 80 mg Documented by: Gabapentin (Neurontin) 100 mg PO TID [facility] Last Admin: 05/26/20 15:24 Dose: 100 mg Documented by: Glycopyrrolate/Indacaterol (Utibron Neohaler 27.5-15.6 Mcg) 0 each IH BIDRT [facility] Ceftriaxone Sodium 1 gm/ (Sodium Chloride) 50 mls @ 100 mls/hr IV Q24H [facility] Last Admin: 05/25/20 18:39 Dose: 100 mls/hr Documented by: Levofloxacin/Dextrose 750 mg/ (Premix) 150 mls @ 100 mls/hr IV Q48H [facility] Last Admin: 05/25/20 19:08 Dose: 100 mls/hr Documented by: Influenza Virus Vaccine (Fluzone High-Dose Quad ) 240 mcg IM .ONCE ONE Stop: 05/27/20 09:01 Insulin Glargine (Lantus Solostar) 70 units SUBCUT DAILY [facility] Last Admin: 05/26/20 09:47 Dose: 70 unit Documented by: Insulin Human Lispro (Humalog) 40 unit SUBCUT TIDMEALS [facility] Last Admin: 05/26/20 12:39 Dose: 40 unit Documented by: Insulin Human Lispro (Humalog) 0 unit SUBCUT QIDACANDBED [facility]; Protocol Last Admin: 05/26/20 11:41 Dose: Not Given Documented by: Isosorbide Mononitrate (Imdur) 30 mg PO DAILY [facility] Last Admin: 05/26/20 09:14 Dose: 30 mg Documented by: Lactobacillus Rhamnosus (Culturelle) 1 cap PO BID [facility] Last Admin: 05/26/20 09:20 Dose: 1 cap Documented by: Latanoprost (Xalatan 0.005% [facility] Soln) 0 ml EYEBOTH BEDTIME [facility] Last Admin: 05/25/20 20:16 Dose: 1 drop Documented by: Metformin HCl (Glucophage) 500 mg PO BIDMEALS [facility] Last Admin: 05/26/20 09:23 Dose: 500 mg Documented by: Metoprolol Tartrate (Lopressor) 25 mg PO BEDTIME [facility] Last Admin: 05/25/20 20:09 Dose: 25 mg Documented by: Metoprolol Tartrate (Lopressor) 50 mg PO DAILY [facility] Last Admin: 05/26/20 09:16 Dose: 50 mg Documented by: Ondansetron HCl (Zofran) 4 mg IV Q4H PRN PRN Reason: Nausea/Vomiting Oxycodone HCl (Oxycodone) 5 mg PO Q4H PRN PRN Reason: Pain (moderate 4-6) Pantoprazole Sodium (Protonix) 40 mg PO ACBREAKFAST [facility] Last Admin: 05/26/20 09:21 Dose: 40 mg Documented by: Polyethylene Glycol (Miralax) 17 gm PO DAILY PRN PRN Reason: Constipation Psyllium Husk (Metamucil Sugar Free) 1 pkt PO DAILY [facility] Last Admin: 05/26/20 12:46 Dose: 1 pkt Documented by: Rosuvastatin Calcium (Crestor) 20 mg PO BEDTIME [facility] Last Admin: 05/25/20 20:08 Dose: 20 mg Documented by: Sodium Chloride (Saline Flush) 10 ml FLUSH ASDIRECTED PRN PRN Reason: Keep Vein Open Spironolactone (Aldactone) 25 mg PO DAILY [facility] Last Admin: 05/26/20 09:12 Dose: 25 mg Documented by: Discontinued Medications Enoxaparin Sodium (Lovenox) 40 mg SUBCUT DAILY [facility] Last Admin: 05/25/20 20:04 Dose: 40 mg Documented by: Sodium Chloride (Normal Saline) 1,000 mls @ 75 mls/hr IV ASDIRECTED [facility] Last Admin: 05/26/20 10:14 Dose: 75 mls/hr Documented by: Potassium Chloride (Klor-Con M20) 40 meq PO ONETIME ONE Stop: 05/26/20 09:01 Last Admin: 05/26/20 09:19 Dose: 40 meq Documented by: - Exam General: Alert, Oriented, Cooperative, Mild Distress Lungs: Clear to Auscultation, Normal Respiratory Effort, Decreased Breath Sounds. No: Rales, Rhonchi, Wheezing Cardiovascular: Regular Rate, Regular Rhythm, No Murmurs GI/Abdominal Exam: Soft, Non-Tender, No Organomegaly, No Distention Extremities: Non-Tender, Pedal Edema Skin: Warm, Dry, Intact Sepsis Event Note - Evaluation Sepsis Screening Result: No Definite Risk - Focused Exam Vital Signs: Vital Signs Temp Temp Pulse Pulse Resp BP BP 05/26/20 14:37 99.2 F 83 16 103/48 L 05/26/20 11:02 98.4 F 73 14 120/60 05/26/20 09:22 120/53 L 05/26/20 09:16 82 120/53 L 05/26/20 09:14 120/53 L 05/26/20 08:16 98.4 F 05/26/20 07:46 213.6 F H 05/26/20 07:00 100.9 F H 90 18 120/53 L Pulse Ox 05/26/20 14:37 94 L 05/26/20 11:02 91 L 05/26/20 09:22 05/26/20 09:16 05/26/20 09:14 05/26/20 08:16 05/26/20 07:46 05/26/20 07:00 90 L - Problem List Review Problem List Initiated/Reviewed/Updated: Yes - My Orders Last 24 Hours: My Active Orders 05/25/20 Dinner Consistent Carbohydrate Diet [DIET] 05/25/20 18:00 Levofloxacin/Dextrose 5%-Water [Levaquin in D5W 750 MG/150 ML] 750 mg Premix Bag 1 bag IV Q48H [id number] [Rocephin] 1 gm Sodium Chloride 0.9% [Normal Saline] 50 ml IV Q24H 05/25/20 18:18 Blood Culture x2 Reflex Set [OM.PC] Urgent 05/25/20 18:25 Resuscitation Status Routine 05/25/20 18:40 CULTURE BLOOD [BC] Stat 05/25/20 18:44 CULTURE BLOOD [BC] Stat 05/25/20 19:29 Acetaminophen [TylenoL] 650 mg PO Q4H PRN Albuterol [Proventil Neb Soln] 2.5 mg NEB Q4H PRN Aspirin [Halfprin] 81 mg PO DAILY Dextrose 50% in Water 50 ml IV ONETIME PRN Dextrose [Glutose 15] 15 gm PO ONETIME PRN Insulin Glarg,Human.Rec.Analog [LantUS Solostar] 70 units SUBCUT DAILY Isosorbide Mononitrate [Imdur] 30 mg PO DAILY Ondansetron [Zofran] 4 mg IV Q4H PRN Sodium Chloride 0.9% [Saline Flush] 10 ml FLUSH ASDIRECTED PRN allopurinoL [Zyloprim] 100 mg PO DAILY oxyCODONE 5 mg PO Q4H PRN polyethylene glycoL 3350 [MiraLAX] 17 gm PO DAILY PRN 05/25/20 19:29 Patient Status [ADT] Routine Ambulate [RC] QID Communication Order [RC] STAT Diabetes Education [RC] Click to Edit Height and Weight [RC] DAILY Intake and Output [RC] QSHIFT Notify Provider Vital Signs [RC] ASDIRECTED Notify Provider [RC] PRN Oxygen Therapy [RC] PRN Peripheral IV Care [RC] Q12H Pulse Oximetry [RC] CONTINUOUS RT Aerosol Therapy [RC] ASDIRECTED Up With Assistance [RC] ASDIRECTED Up to Chair [RC] QID Vital Signs [RC] Q4H Isolation [COMM] Routine Peripheral IV Insertion Adult [OM.PC] Routine 05/25/20 20:00 Insulin Lispro [HumaLOG] See Protocol SUBCUT QIDACANDBED 05/25/20 21:00 Gabapentin [Neurontin] 100 mg PO TID Lactobacillus Rhamnosus GG [Culturelle] 1 cap PO BID Latanoprost [Xalatan 0.005% Ophth Soln] 0 ml EYEBOTH BEDTIME Metoprolol Tartrate [Lopressor] 25 mg PO BEDTIME Rosuvastatin [Crestor] 20 mg PO BEDTIME amLODIPine [Norvasc] 5 mg PO BID metFORMIN [Glucophage] 500 mg PO BIDMEALS 05/26/20 07:30 Indacaterol/Glycopyrrolate [Utibron Neohaler 27.5-15.6 MCG] 0 each IH BIDRT Pantoprazole [ProTONIX] 40 mg PO ACBREAKFAST 05/26/20 08:00 Insulin Lispro [HumaLOG] 40 unit SUBCUT TIDMEALS 05/26/20 09:00 Furosemide [Lasix] 80 mg PO DAILY Metoprolol Tartrate [Lopressor] 50 mg PO DAILY Psyllium Husk/Aspartame [Metamucil Sugar Free] 1 pkt PO DAILY Spironolactone [Aldactone] 25 mg PO DAILY 05/26/20 14:31 Influenza Vaccine Charge [RC] .DISCHARGE 05/26/20 16:28 Convert IV to Saline Lock [OM.PC] Routine 05/26/20 16:30 GLUCOSE POC LAB TO COLLECT JPM [POC] QIDACANDBED 05/26/20 18:00 Enoxaparin [Lovenox] 40 mg SUBCUT Q24H 05/26/20 21:00 GLUCOSE POC LAB TO COLLECT JPM [POC] QIDACANDBED 05/27/20 05:00 BASIC METABOLIC PANEL,BMP [CHEM] Timed CBC WITH AUTO DIFF [HEME] Timed 05/27/20 07:30 GLUCOSE POC LAB TO COLLECT JPM [POC] QIDACANDBED 05/27/20 09:00 FLU Vacc [id number](65YR UP)/PF [Fluzone High-Dose Quad ] 240 mcg IM .ONCE ONE 05/27/20 11:30 GLUCOSE POC LAB TO COLLECT JPM [POC] QIDACANDBED 05/27/20 16:30 GLUCOSE POC LAB TO COLLECT JPM [POC] QIDACANDBED 05/27/20 21:00 GLUCOSE POC LAB TO COLLECT JPM [POC] QIDACANDBED 05/28/20 07:30 GLUCOSE POC LAB TO COLLECT JPM [POC] QIDACANDBED 05/28/20 11:30 GLUCOSE POC LAB TO COLLECT JPM [POC] QIDACANDBED 05/28/20 16:30 GLUCOSE POC LAB TO COLLECT JPM [POC] QIDACANDBED 05/28/20 21:00 GLUCOSE POC LAB TO COLLECT JPM [POC] QIDACANDBED 05/29/20 07:30 GLUCOSE POC LAB TO COLLECT JPM [POC] QIDACANDBED 05/29/20 11:30 GLUCOSE POC LAB TO COLLECT JPM [POC] QIDACANDBED 05/29/20 16:30 GLUCOSE POC LAB TO COLLECT JPM [POC] QIDACANDBED 05/29/20 21:00 GLUCOSE POC LAB TO COLLECT JPM [POC] QIDACANDBED 05/30/20 07:30 GLUCOSE POC LAB TO COLLECT JPM [POC] QIDACANDBED 05/30/20 11:30 GLUCOSE POC LAB TO COLLECT JPM [POC] QIDACANDBED 05/30/20 16:30 GLUCOSE POC LAB TO COLLECT JPM [POC] QIDACANDBED - Plan Plan:: ASSESSMENT AND PLAN BILATERAL PNEUMONIA-stable since admission with low-grade temperature elevations. White blood cell count has improved. -Saline lock IV -Blood cultures pending -Probiotic therapy -Expanded antibiotic coverage; ceftriaxone and levofloxacin, pending culture results -Supplemental oxygen and nebulizer therapy as needed TYPE 2 DIABETES MELLITUS -Continue outpatient insulin and metformin -4 times daily glucometers -Moderate dose sliding scale Humalog CONGESTIVE HEART FAILURE-by history well compensated -Cautious use of IV fluids -Continue outpatient medications CHRONIC KIDNEY DISEASE STAGE IIIa -Closely monitor urine output and renal function MAINTENANCE ISSUES -DVT prophylaxis; Lovenox 40 mg subcu daily -GI prophylaxis; continue outpatient PPI therapy -[place] catheter; not indicated -Nutrition; consistent carbohydrate diet -Nicotine dependence; not required CODE STATUS-DNR/DNI ADMISSION STATUS-patient will be admitted to inpatient status, expect at least a 2 night hospital stay for evaluation and management of problems as outlined above. At the time of this admission I do not reasonably expected evaluation and management of this problem will require more than a 96 hour hospital stay. DISPOSITION-anticipate discharge to home after the hospital stay. PRIMARY CARE PROVIDER-Dr. Carver
[2020-05-26] MEDS: cefTRIAXone 1 GM in Sodium Chloride 0.9% 50 ML IV SCH (18:25)
[2020-05-26] MEDS: Enoxaparin 40 MG/0.4 ML Syringe SUBCUT SCH (18:26)
[2020-05-26] MEDS: Indacaterol/Glycopyrrolate 1 EA Cap.W.Dev Kit of 6 IH SCH ×2 (18:47→21:27)
[2020-05-26] MEDS: Rosuvastatin 10 MG Tab PO SCH (21:24)
[2020-05-26] MEDS: Metoprolol Tartrate 25 MG Tab PO SCH (21:25)
[2020-05-26] MEDS: Latanoprost 0.005% Ophth Soln 2.5 ML Bottle EYEBOTH SCH (21:27)
[2020-05-27] MEDS: Acetaminophen 325 MG Tab PO PRN ×3 (04:18→21:44)
[2020-05-27] MEDS: Insulin Lispro 100 Unit/ML 3 ML KwikPen SUBCUT SCH ×7 (07:40→21:15)
[2020-05-27] MEDS: Indacaterol/Glycopyrrolate 1 EA Cap.W.Dev Kit of 6 IH SCH ×2 (08:23→21:28)
[2020-05-27] MEDS: Pantoprazole 40 MG Tab.CR PO SCH (08:23)
[2020-05-27] MEDS ORDERED: Potassium Chloride 20 MEQ Tab.ER PO ONE (09:00)
[2020-05-27] MEDS ORDERED: FLU Vacc QV2020-21(65YR UP)/PF 240 MCG/0.7 ML Syringe IM ONE (09:00)
[2020-05-27] MEDS: Allopurinol 100 MG Tab PO SCH (09:24)
[2020-05-27] MEDS: Metoprolol Tartrate 50 MG Tab PO SCH (09:25)
[2020-05-27] MEDS: metFORMIN 500 MG Tab PO SCH ×2 (09:25→17:47)
[2020-05-27] MEDS: Furosemide 40 MG Tab PO SCH (09:25)
[2020-05-27] MEDS: amLODIPine 5 MG Tab PO SCH ×2 (09:25→21:35)
[2020-05-27] MEDS: Lactobacillus Rhamnosus GG (Probiotic) Cap PO SCH ×2 (09:25→21:26)
[2020-05-27] MEDS: Aspirin 81 MG Tab.EC PO SCH (09:25)
[2020-05-27] MEDS: Spironolactone 25 MG Tab PO SCH (09:26)
[2020-05-27] MEDS: Isosorbide Mononitrate 30 MG Tab.ER PO SCH (09:26)
[2020-05-27] MEDS: Gabapentin 100 MG Cap PO SCH ×3 (09:26→21:26)
[2020-05-27] MEDS: Psyllium Husk Powder Sugar Free 5.85 GM Packet PO SCH (09:26)
[2020-05-27] MEDS: Insulin Glargine,Human Rec. Analog 100 Units/ML 3 ML Pen SUBCUT SCH (09:27)
--- NOTE | 2020-05-27 11:08 | PCM.PN ---
- General Info Date of Service: 05/27/20 Admission Dx/Problem (Free Text): Admission Diagnosis/Problem Admission Diagnosis/Problem Pneumonia Subjective Update: Mr. Wells has been stable since admission, he had a mild temperature elevation documented again last evening. White blood cell count has normalized and level of dyspnea is stable. Vital signs have otherwise been within desired range and he has experienced no significant hypoxia. Functional Status: Reports: Pain Controlled, Tolerating Diet, Ambulating, Urinating - Review of Systems General: Reports: No Symptoms, Fever, Weakness (is improving, but not back to normal) HEENT: Reports: No Symptoms Pulmonary: Reports: Shortness of Breath, Cough. Denies: Pleuritic Chest Pain, Hemoptysis, Wheezing Cardiovascular: Reports: Dyspnea on Exertion, Edema. Denies: Chest Pain, Palpitations, Orthopnea, Lightheadedness Gastrointestinal: Reports: No Symptoms. Denies: Abdominal Pain, Diarrhea, Difficulty Swallowing, Nausea, Vomiting Genitourinary: Reports: No Symptoms. Denies: Dysuria, Frequency, Burning, Urgency, Incontinence Musculoskeletal: Reports: No Symptoms Skin: Reports: Other (redness to left lower leg). Denies: Cyanosis, Jaundice, Pallor, Diaphoresis Neurological: Reports: No Symptoms. Denies: Weakness Psychiatric: Reports: No Symptoms - Patient Data Vitals - Most Recent: Last Vital Signs Temp 99.5 F 05/27/20 08:19 Pulse 80 05/27/20 09:25 Resp 18 05/27/20 08:19 BP 147/62 H 05/27/20 09:26 Pulse Ox 94 L 05/27/20 08:19 Weight - Most Recent: 270 lb 4.799 oz I&O - Last 24 Hours: Intake & Output 05/26/20 05/27/20 05/27/20 22:59 06:59 14:59 Intake Total 700 500 Balance 700 500 Lab Results Last 24 Hours: Laboratory Results - last 24 hr 05/26/20 05/26/20 05/26/20 Range/Units 11:35 16:30 21:00 WBC (4.5-11.0) K/uL RBC (4.30-5.90) M/uL Hgb (12.0-15.0) g/dL Hct (40.0-54.0) % MCV (80-98) fL MCH (27-31) pg MCHC (32-36) % Plt Count (150-400) K/uL Neut % (Auto) (36-66) % Lymph % (Auto) (24-44) % [place] % (Auto) (2-6) % Eos % (Auto) (2-4) % Baso % (Auto) (0-1) % Sodium (140-148) mmol/L Potassium (3.6-5.2) mmol/L Chloride (100-108) mmol/L Carbon Dioxide (21-32) mmol/L Anion Gap (5.0-14.0) mmol/L BUN (7-18) mg/dL Creatinine (0.8-1.3) mg/dL Est Cr Clr Drug Dosing mL/min Estimated GFR (MDRD) (>60) Glucose (74-106) mg/dL POC Glucose 133 H 114 H 130 H (74-106) MG/DL Calcium (8.5-10.1) mg/dL 05/27/20 05/27/20 05/27/20 Range/Units 04:10 04:10 07:30 WBC 9.4 (4.5-11.0) K/uL RBC 4.55 (4.30-5.90) M/uL Hgb 12.8 (12.0-15.0) g/dL Hct 37.7 L (40.0-54.0) % MCV 83 (80-98) fL MCH 28 (27-31) pg MCHC 34 (32-36) % Plt Count 204 (150-400) K/uL Neut % (Auto) 68 H (36-66) % Lymph % (Auto) 25 (24-44) % [place] % (Auto) 7 H (2-6) % Eos % (Auto) 0 L (2-4) % Baso % (Auto) 0 (0-1) % Sodium 136 L (140-148) mmol/L Potassium 3.5 L (3.6-5.2) mmol/L Chloride 103 (100-108) mmol/L Carbon Dioxide 23 (21-32) mmol/L Anion Gap 13.5 (5.0-14.0) mmol/L BUN 25 H (7-18) mg/dL Creatinine 1.3 (0.8-1.3) mg/dL Est Cr Clr Drug Dosing 43.78 mL/min Estimated GFR (MDRD) 53 L (>60) Glucose 111 H (74-106) mg/dL POC Glucose 113 H (74-106) MG/DL Calcium 8.8 (8.5-10.1) mg/dL Ranjit Results Last 24 Hours: Microbiology 05/25/20 18:40 Aerobic Blood Culture - Preliminary Blood - Arm, Right NO GROWTH AFTER 1 DAY Anaerobic Blood Culture - Preliminary NO GROWTH AFTER 1 DAY 05/25/20 18:44 Aerobic Blood Culture - Preliminary Blood - Arm, Right NO GROWTH AFTER 1 DAY Anaerobic Blood Culture - Preliminary NO GROWTH AFTER 1 DAY Med Orders - Current: Current Medications Acetaminophen (Tylenol) 650 mg PO Q4H PRN PRN Reason: Pain (Mild 1-3)/fever Last Admin: 05/27/20 04:18 Dose: 650 mg Documented by: Albuterol (Proventil Neb Soln) 2.5 mg NEB Q4H PRN PRN Reason: Shortness Of Breath/wheezing Last Admin: 05/27/20 04:19 Dose: 2.5 mg Documented by: Allopurinol (Zyloprim) 100 mg PO DAILY [facility] Last Admin: 05/27/20 09:24 Dose: 100 mg Documented by: Amlodipine Besylate (Norvasc) 5 mg PO BID [facility] Last Admin: 05/27/20 09:25 Dose: 5 mg Documented by: Aspirin (Halfprin) 81 mg PO DAILY [facility] Last Admin: 05/27/20 09:25 Dose: 81 mg Documented by: Dextrose (Glutose 15) 15 gm PO ONETIME PRN PRN Reason: Hypoglycemia Dextrose/Water (Dextrose 50% In Water) 50 ml IV ONETIME PRN PRN Reason: Hypoglycemia Enoxaparin Sodium (Lovenox) 40 mg SUBCUT Q24H [facility] Last Admin: 05/26/20 18:26 Dose: 40 mg Documented by: Furosemide (Lasix) 80 mg PO DAILY [facility] Last Admin: 05/27/20 09:25 Dose: 80 mg Documented by: Furosemide (Lasix) 40 mg IVPUSH ONETIME ONE Stop: 05/27/20 13:01 Gabapentin (Neurontin) 100 mg PO TID [facility] Last Admin: 05/27/20 09:26 Dose: 100 mg Documented by: Glycopyrrolate/Indacaterol (Utibron Neohaler 27.5-15.6 Mcg) 0 each IH BIDRT [facility] Last Admin: 05/27/20 08:23 Dose: 1 inhalation Documented by: Ceftriaxone Sodium 1 gm/ (Sodium Chloride) 50 mls @ 100 mls/hr IV Q24H [facility] Last Admin: 05/26/20 18:25 Dose: 100 mls/hr Documented by: Levofloxacin/Dextrose 750 mg/ (Premix) 150 mls @ 100 mls/hr IV Q48H [facility] Last Admin: 05/25/20 19:08 Dose: 100 mls/hr Documented by: Insulin Glargine (Lantus Solostar) 70 units SUBCUT DAILY [facility] Last Admin: 05/27/20 09:27 Dose: 70 unit Documented by: Insulin Human Lispro (Humalog) 40 unit SUBCUT TIDMEALS [facility] Last Admin: 05/27/20 09:26 Dose: 40 unit Documented by: Insulin Human Lispro (Humalog) 0 unit SUBCUT QIDACANDBED [facility]; Protocol Last Admin: 05/27/20 07:40 Dose: Not Given Documented by: Isosorbide Mononitrate (Imdur) 30 mg PO DAILY [facility] Last Admin: 05/27/20 09:26 Dose: 30 mg Documented by: Lactobacillus Rhamnosus (Culturelle) 1 cap PO BID [facility] Last Admin: 05/27/20 09:25 Dose: 1 cap Documented by: Latanoprost (Xalatan 0.005% Oph Soln) 0 ml EYEBOTH BEDTIME [facility] Last Admin: 05/26/20 21:27 Dose: 2 drop Documented by: Metformin HCl (Glucophage) 500 mg PO BIDMEALS [facility] Last Admin: 05/27/20 09:25 Dose: 500 mg Documented by: Metoprolol Tartrate (Lopressor) 25 mg PO BEDTIME [facility] Last Admin: 05/26/20 21:25 Dose: 25 mg Documented by: Metoprolol Tartrate (Lopressor) 50 mg PO DAILY [facility] Last Admin: 05/27/20 09:25 Dose: 50 mg Documented by: Ondansetron HCl (Zofran) 4 mg IV Q4H PRN PRN Reason: Nausea/Vomiting Oxycodone HCl (Oxycodone) 5 mg PO Q4H PRN PRN Reason: Pain (moderate 4-6) Pantoprazole Sodium (Protonix) 40 mg PO ACBREAKFAST [facility] Last Admin: 05/27/20 08:23 Dose: 40 mg Documented by: Polyethylene Glycol (Miralax) 17 gm PO DAILY PRN PRN Reason: Constipation Psyllium Husk (Metamucil Sugar Free) 1 pkt PO DAILY [facility] Last Admin: 05/27/20 09:26 Dose: 1 pkt Documented by: Rosuvastatin Calcium (Crestor) 20 mg PO BEDTIME [facility] Last Admin: 05/26/20 21:24 Dose: 20 mg Documented by: Sodium Chloride (Saline Flush) 10 ml FLUSH ASDIRECTED PRN PRN Reason: Keep Vein Open Spironolactone (Aldactone) 25 mg PO DAILY [facility] Last Admin: 05/27/20 09:26 Dose: 25 mg Documented by: Discontinued Medications Enoxaparin Sodium (Lovenox) 40 mg SUBCUT DAILY [facility] Last Admin: 05/25/20 20:04 Dose: 40 mg Documented by: Sodium Chloride (Normal Saline) 1,000 mls @ 75 mls/hr IV ASDIRECTED [facility] Last Admin: 05/26/20 10:14 Dose: 75 mls/hr Documented by: Influenza Virus Vaccine (Fluzone High-Dose Quad ) 240 mcg IM .ONCE ONE Stop: 05/27/20 09:01 Potassium Chloride (Klor-Con M20) 40 meq PO ONETIME ONE Stop: 05/26/20 09:01 Last Admin: 05/26/20 09:19 Dose: 40 meq Documented by: Potassium Chloride (Klor-Con M20) 40 meq PO ONETIME ONE Stop: 05/27/20 09:01 Last Admin: 05/27/20 09:26 Dose: 40 meq Documented by: - Exam General: Alert, Oriented, Cooperative HEENT: Mucous Membr. Moist/[place] Neck: Supple Lungs: Decreased Breath Sounds, Crackles, Other (inspiratory crackles to the bases bilaterally, more diminished to the left lung than right) Cardiovascular: Regular Rate, Regular Rhythm. No: No Murmurs, Murmurs, Gallops, Rubs GI/Abdominal Exam: Normal Bowel Sounds, Soft, Non-Tender, No Organomegaly, No Distention (Male) Exam: Deferred Back Exam: Normal Inspection Extremities: Pedal Edema Skin: Warm, Dry, Intact, Other (erythemic area to left lower extremity with small scab intact.) Neurological: No New Focal Deficit Psy/Mental Status: Alert, Normal Affect, Normal Mood Sepsis Event Note - Evaluation Sepsis Screening Result: No Definite Risk - Focused Exam Vital Signs: Vital Signs Temp Pulse Pulse Resp BP BP Pulse Ox 05/27/20 09:26 147/62 H 05/27/20 09:25 80 147/62 H 05/27/20 08:19 99.5 F 80 18 106/58 L 94 L 05/27/20 04:32 96 05/27/20 04:11 97.4 F 80 18 120/59 L 89 L - Problem List Review Problem List Initiated/Reviewed/Updated: Yes - My Orders Last 24 Hours: My Active Orders 05/27/20 17:00 Furosemide [Lasix] 40 mg IVPUSH ONETIME ONE 05/28/20 05:00 POTASSIUM,K [CHEM] Routine - Plan Plan:: ASSESSMENT AND PLAN BILATERAL PNEUMONIA-stable since admission with low-grade temperature elevations. White blood cell count has normalized. -Saline lock IV -Blood cultures negative -Probiotic therapy -Expanded antibiotic coverage; ceftriaxone and levofloxacin, pending culture results -Supplemental oxygen and nebulizer therapy as needed, not currently requiring oxygen use. TYPE 2 DIABETES MELLITUS -Continue outpatient insulin and metformin -4 times daily glucometers -Moderate dose sliding scale Humalog CONGESTIVE HEART FAILURE-by history well compensated -Cautious use of IV fluids - currently saline locked with access for IV antibiotics only -Continue outpatient medications -Increase in peripheral edema with venous stasis rash to left lower extremity, IV Lasix 40mg today. -Lab: potassium in AM to monitor hypokalemia with IV lasix use. CHRONIC KIDNEY DISEASE STAGE IIIa -Closely monitor urine output and renal function MAINTENANCE ISSUES -DVT prophylaxis; Lovenox 40 mg subcu daily -GI prophylaxis; continue outpatient PPI therapy -Oconnell catheter; not indicated -Nutrition; consistent carbohydrate diet -Nicotine dependence; not required -Influenza vaccine status; administer at discharge time from hospital. CODE STATUS-DNR/DNI ADMISSION STATUS-patient will be admitted to inpatient status, expect at least a 2 night hospital stay for evaluation and management of problems as outlined above. At the time of this admission I do not reasonably expected evaluation and management of this problem will require more than a 96 hour hospital stay. DISPOSITION-anticipate discharge to home after the hospital stay. PRIMARY CARE PROVIDER-Dr. Carver
[2020-05-27] MEDS ORDERED: Furosemide 40 MG/4 ML VIAL IVPUSH ONE ×2 (13:00→17:00)
[2020-05-27 13:13] LABS: HGE IGG TITER Negative (Neg:<1:64); HGE IGM TITER Negative (Neg:<1:20)
[2020-05-27] MEDS: Enoxaparin 40 MG/0.4 ML Syringe SUBCUT SCH (17:46)
[2020-05-27] MEDS: Levofloxacin/Dextrose 5%-Water 750 MG in Premix Bag 1 BAG IV SCH (18:56)
[2020-05-27] MEDS: cefTRIAXone 1 GM in Sodium Chloride 0.9% 50 ML IV SCH (20:53)
[2020-05-27] MEDS: Rosuvastatin 10 MG Tab PO SCH (21:26)
[2020-05-27] MEDS: Latanoprost 0.005% Ophth Soln 2.5 ML Bottle EYEBOTH SCH (21:26)
[2020-05-27] MEDS: Metoprolol Tartrate 25 MG Tab PO SCH (21:32)
[2020-05-28] MEDS: Pantoprazole 40 MG Tab.CR PO SCH (08:04)
[2020-05-28] MEDS: Aspirin 81 MG Tab.EC PO SCH (08:58)
[2020-05-28] MEDS: Spironolactone 25 MG Tab PO SCH (08:58)
[2020-05-28] MEDS ORDERED: Potassium Chloride 20 MEQ Tab.ER PO ONE ×2 (09:00→17:00)
[2020-05-28] MEDS: Furosemide 40 MG Tab PO SCH (09:00)
[2020-05-28] MEDS: Gabapentin 100 MG Cap PO SCH ×3 (09:02→21:17)
[2020-05-28] MEDS: Allopurinol 100 MG Tab PO SCH (09:03)
[2020-05-28] MEDS: Insulin Glargine,Human Rec. Analog 100 Units/ML 3 ML Pen SUBCUT SCH (09:05)
[2020-05-28] MEDS: Insulin Lispro 100 Unit/ML 3 ML KwikPen SUBCUT SCH ×7 (09:05→19:59)
[2020-05-28] MEDS: Psyllium Husk Powder Sugar Free 5.85 GM Packet PO SCH (09:15)
[2020-05-28] MEDS: Lactobacillus Rhamnosus GG (Probiotic) Cap PO SCH ×2 (09:17→21:15)
[2020-05-28] MEDS ORDERED: FLU Vacc QV2020-21(65YR UP)/PF 240 MCG/0.7 ML Syringe IM ONE (10:00)
[2020-05-28] MEDS: Indacaterol/Glycopyrrolate 1 EA Cap.W.Dev Kit of 6 IH SCH ×2 (10:07→21:17)
[2020-05-28] MEDS: Isosorbide Mononitrate 30 MG Tab.ER PO SCH (10:08)
[2020-05-28] MEDS: Metoprolol Tartrate 50 MG Tab PO SCH (10:08)
[2020-05-28] MEDS: amLODIPine 5 MG Tab PO SCH ×2 (10:09→21:17)
[2020-05-28] MEDS: metFORMIN 500 MG Tab PO SCH ×2 (11:12→17:42)
--- NOTE | 2020-05-28 11:44 | PCM.PN ---
- General Info Date of Service: 05/28/20 Subjective Update: Mr. Wells has been stable over the last 24 hours. Denies significant shortness of breath or cough. Vital signs have been good but he did have recurrent temperature elevation to 101 degrees last night. Functional Status: Reports: Tolerating Diet, Ambulating, Urinating - Review of Systems General: Reports: Fever, Weakness, Fatigue, Chills Pulmonary: Reports: No Symptoms Cardiovascular: Reports: No Symptoms Gastrointestinal: Reports: No Symptoms - Patient Data Vitals - Most Recent: Last Vital Signs Temp 98.5 F 05/28/20 07:51 Pulse 88 05/28/20 10:08 Resp 24 H 05/28/20 07:51 BP 133/66 05/28/20 10:09 Pulse Ox 94 L 05/28/20 09:35 Weight - Most Recent: 271 lb 9.6 oz I&O - Last 24 Hours: Intake & Output 05/27/20 05/28/20 05/28/20 22:59 06:59 14:59 Intake Total 1860 Output Total 775 700 Balance 1085 -700 Lab Results Last 24 Hours: Laboratory Results - last 24 hr 05/25/20 05/27/20 05/27/20 Range/Units 14:30 11:31 16:30 Potassium (3.6-5.2) mmol/L POC Glucose 114 H 81 (74-106) MG/DL HGE IgG Antibody Negative (Neg:<1:64) HGE IgM Antibody Negative (Neg:<1:20) 05/27/20 05/28/20 05/28/20 Range/Units 20:56 04:27 07:20 Potassium 3.3 L (3.6-5.2) mmol/L POC Glucose 96 81 (74-106) MG/DL HGE IgG Antibody (Neg:<1:64) HGE IgM Antibody (Neg:<1:20) 05/28/20 Range/Units 11:31 Potassium (3.6-5.2) mmol/L POC Glucose 147 H (74-106) MG/DL HGE IgG Antibody (Neg:<1:64) HGE IgM Antibody (Neg:<1:20) Ranjit Results Last 24 Hours: Microbiology 05/25/20 18:44 Aerobic Blood Culture - Preliminary Blood - Arm, Right NO GROWTH AFTER 2 DAYS Anaerobic Blood Culture - Preliminary NO GROWTH AFTER 2 DAYS 05/25/20 18:40 Aerobic Blood Culture - Preliminary Blood - Arm, Right NO GROWTH AFTER 2 DAYS Anaerobic Blood Culture - Preliminary NO GROWTH AFTER 2 DAYS Med Orders - Current: Current Medications Acetaminophen (Tylenol) 650 mg PO Q4H PRN PRN Reason: Pain (Mild 1-3)/fever Last Admin: 05/27/20 21:44 Dose: 650 mg Documented by: Albuterol (Proventil Neb Soln) 2.5 mg NEB Q4H PRN PRN Reason: Shortness Of Breath/wheezing Last Admin: 05/27/20 04:19 Dose: 2.5 mg Documented by: Allopurinol (Zyloprim) 100 mg PO DAILY [facility] Last Admin: 05/28/20 09:03 Dose: 100 mg Documented by: Amlodipine Besylate (Norvasc) 5 mg PO BID [facility] Last Admin: 05/28/20 10:09 Dose: 5 mg Documented by: Aspirin (Halfprin) 81 mg PO DAILY [facility] Last Admin: 05/28/20 08:58 Dose: 81 mg Documented by: Dextrose (Glutose 15) 15 gm PO ONETIME PRN PRN Reason: Hypoglycemia Dextrose/Water (Dextrose 50% In Water) 50 ml IV ONETIME PRN PRN Reason: Hypoglycemia Enoxaparin Sodium (Lovenox) 40 mg SUBCUT Q24H [facility] Last Admin: 05/27/20 17:46 Dose: 40 mg Documented by: Furosemide (Lasix) 80 mg PO DAILY [facility] Last Admin: 05/28/20 09:00 Dose: 80 mg Documented by: Furosemide (Lasix) 40 mg IVPUSH NOW ONE Stop: 05/28/20 17:01 Gabapentin (Neurontin) 100 mg PO TID [facility] Last Admin: 05/28/20 09:02 Dose: 100 mg Documented by: Glycopyrrolate/Indacaterol (Utibron Neohaler 27.5-15.6 Mcg) 0 each IH BIDRT [facility] Last Admin: 05/28/20 10:07 Dose: 1 inhalation Documented by: Ceftriaxone Sodium 1 gm/ (Sodium Chloride) 50 mls @ 100 mls/hr IV Q24H [facility] Last Admin: 05/27/20 20:53 Dose: 100 mls/hr Documented by: Levofloxacin/Dextrose 750 mg/ (Premix) 150 mls @ 100 mls/hr IV Q48H [facility] Last Admin: 10/02/20 18:56 Dose: 100 mls/hr Documented by: Influenza Virus Vaccine (Fluzone High-Dose Quad ) 240 mcg IM .ONCE ONE Stop: 05/29/20 12:01 Insulin Glargine (Lantus Solostar) 70 units SUBCUT DAILY [facility] Last Admin: 05/28/20 09:05 Dose: 70 unit Documented by: Insulin Human Lispro (Humalog) 40 unit SUBCUT TIDMEALS [facility] Last Admin: 05/28/20 11:11 Dose: 40 unit Documented by: Insulin Human Lispro (Humalog) 0 unit SUBCUT QIDACANDBED [facility]; Protocol Last Admin: 05/28/20 09:05 Dose: Not Given Documented by: Isosorbide Mononitrate (Imdur) 30 mg PO DAILY [facility] Last Admin: 05/28/20 10:08 Dose: 30 mg Documented by: Lactobacillus Rhamnosus (Culturelle) 1 cap PO BID [facility] Last Admin: 05/28/20 09:17 Dose: 1 cap Documented by: Latanoprost (Xalatan 0.005% [facility]) 0 ml EYEBOTH BEDTIME [facility] Last Admin: 05/27/20 21:26 Dose: 1 drop Documented by: Metformin HCl (Glucophage) 500 mg PO BIDMEALS [facility] Last Admin: 05/28/20 11:12 Dose: 500 mg Documented by: Metoprolol Tartrate (Lopressor) 25 mg PO BEDTIME [facility] Last Admin: 05/27/20 21:32 Dose: 25 mg Documented by: Metoprolol Tartrate (Lopressor) 50 mg PO DAILY [facility] Last Admin: 05/28/20 10:08 Dose: 50 mg Documented by: Ondansetron HCl (Zofran) 4 mg IV Q4H PRN PRN Reason: Nausea/Vomiting Oxycodone HCl (Oxycodone) 5 mg PO Q4H PRN PRN Reason: Pain (moderate 4-6) Pantoprazole Sodium (Protonix) 40 mg PO ACBREAKFAST [facility] Last Admin: 05/28/20 08:04 Dose: 40 mg Documented by: Polyethylene Glycol (Miralax) 17 gm PO DAILY PRN PRN Reason: Constipation Potassium Chloride (Klor-Con M20) 40 meq PO ONETIME ONE Stop: 05/28/20 17:01 Psyllium Husk (Metamucil Sugar Free) 1 pkt PO DAILY [facility] Last Admin: 05/28/20 09:15 Dose: 1 pkt Documented by: Rosuvastatin Calcium (Crestor) 20 mg PO BEDTIME [facility] Last Admin: 05/27/20 21:26 Dose: 20 mg Documented by: Sodium Chloride (Saline Flush) 10 ml FLUSH ASDIRECTED PRN PRN Reason: Keep Vein Open Spironolactone (Aldactone) 25 mg PO DAILY [facility] Last Admin: 05/28/20 08:58 Dose: 25 mg Documented by: Discontinued Medications Enoxaparin Sodium (Lovenox) 40 mg SUBCUT DAILY [facility] Last Admin: 05/25/20 20:04 Dose: 40 mg Documented by: Furosemide (Lasix) 40 mg IVPUSH ONETIME ONE Stop: 05/27/20 13:01 Furosemide (Lasix) 40 mg IVPUSH ONETIME ONE Stop: 05/27/20 17:01 Last Admin: 05/27/20 18:50 Dose: 40 mg Documented by: Sodium Chloride (Normal Saline) 1,000 mls @ 75 mls/hr IV ASDIRECTED [facility] Last Admin: 05/26/20 10:14 Dose: 75 mls/hr Documented by: Potassium Chloride (Klor-Con M20) 40 meq PO ONETIME ONE Stop: 05/26/20 09:01 Last Admin: 05/26/20 09:19 Dose: 40 meq Documented by: Potassium Chloride (Klor-Con M20) 40 meq PO ONETIME ONE Stop: 05/27/20 09:01 Last Admin: 05/27/20 09:26 Dose: 40 meq Documented by: Potassium Chloride (Klor-Con M20) 40 meq PO ONETIME ONE Stop: 05/28/20 09:01 Last Admin: 05/28/20 09:09 Dose: 40 meq Documented by: - Exam Quality Assessment: DVT Prophylaxis General: Alert, Oriented, Cooperative, Mild Distress Lungs: Clear to Auscultation, Normal Respiratory Effort Cardiovascular: Regular Rate, Regular Rhythm, No Murmurs GI/Abdominal Exam: Soft, Non-Tender, No Organomegaly, No Distention Extremities: Non-Tender, No Pedal Edema Sepsis Event Note - Evaluation Sepsis Screening Result: No Definite Risk - Focused Exam Vital Signs: Vital Signs Temp Pulse Pulse Resp BP BP Pulse Ox 05/28/20 10:09 133/66 05/28/20 10:08 88 133/66 05/28/20 09:35 136/66 94 L 05/28/20 07:51 98.5 F 88 24 H 105/41 L 89 L 05/28/20 04:00 97.4 F 80 18 126/64 88 L - Problem List Review Problem List Initiated/Reviewed/Updated: Yes - My Orders Last 24 Hours: My Active Orders 05/28/20 16:30 GLUCOSE POC LAB TO COLLECT JPM [POC] QIDACANDBED 05/28/20 17:00 Furosemide [Lasix] 40 mg IVPUSH NOW ONE Potassium Chloride [Klor-Con M20] 40 meq PO ONETIME ONE 05/28/20 21:00 GLUCOSE POC LAB TO COLLECT JPM [POC] QIDACANDBED 05/29/20 05:11 POTASSIUM,K [CHEM] AM 05/29/20 07:30 GLUCOSE POC LAB TO COLLECT JPM [POC] QIDACANDBED 05/29/20 11:30 GLUCOSE POC LAB TO COLLECT JPM [POC] QIDACANDBED 05/29/20 12:00 FLU Vacc [id number](65YR UP)/PF [Fluzone High-Dose Quad 2019-] 240 mcg IM .ONCE ONE 05/29/20 16:30 GLUCOSE POC LAB TO COLLECT JPM [POC] QIDACANDBED 05/29/20 21:00 GLUCOSE POC LAB TO COLLECT JPM [POC] QIDACANDBED 05/30/20 07:30 GLUCOSE POC LAB TO COLLECT JPM [POC] QIDACANDBED 05/30/20 11:30 GLUCOSE POC LAB TO COLLECT JPM [POC] QIDACANDBED 05/30/20 16:30 GLUCOSE POC LAB TO COLLECT JPM [POC] QIDACANDBED - Plan Plan:: ASSESSMENT AND PLAN BILATERAL PNEUMONIA-stable since admission with low-grade temperature elevations. White blood cell count has normalized. -Saline lock IV -Blood cultures negative -Probiotic therapy -Expanded antibiotic coverage; ceftriaxone and levofloxacin, pending culture results -Supplemental oxygen and nebulizer therapy as needed, not currently requiring oxygen use. TYPE 2 DIABETES MELLITUS -Continue outpatient insulin and metformin -4 times daily glucometers -Moderate dose sliding scale Humalog CONGESTIVE HEART FAILURE-recent peripheral edema noted -Continue outpatient medications -IV Lasix 40mg later today. -Lab: potassium CHRONIC KIDNEY DISEASE STAGE IIIa-function stable -Closely monitor urine output and renal function MAINTENANCE ISSUES -DVT prophylaxis; Lovenox 40 mg subcu daily -GI prophylaxis; continue outpatient PPI therapy -Oconnell catheter; not indicated -Nutrition; consistent carbohydrate diet -Nicotine dependence; not required -Influenza vaccine status; administer at discharge time from hospital. CODE STATUS-DNR/DNI ADMISSION STATUS-patient will be admitted to inpatient status, expect at least a 2 night hospital stay for evaluation and management of problems as outlined above. At the time of this admission I do not reasonably expected evaluation and management of this problem will require more than a 96 hour hospital stay. DISPOSITION-anticipate discharge to home after the hospital stay. PRIMARY CARE PROVIDER-Dr. Carver
[2020-05-28] MEDS: Acetaminophen 325 MG Tab PO PRN ×3 (11:58→23:20)
[2020-05-28] MEDS ORDERED: Furosemide 40 MG/4 ML VIAL IVPUSH ONE (17:00)
[2020-05-28] MEDS: Enoxaparin 40 MG/0.4 ML Syringe SUBCUT SCH (17:34)
[2020-05-28] MEDS: cefTRIAXone 1 GM in Sodium Chloride 0.9% 50 ML IV SCH (17:38)
[2020-05-28] MEDS: Metoprolol Tartrate 25 MG Tab PO SCH (21:16)
[2020-05-28] MEDS: Rosuvastatin 10 MG Tab PO SCH (21:16)
[2020-05-28] MEDS: Latanoprost 0.005% Ophth Soln 2.5 ML Bottle EYEBOTH SCH (21:18)
[2020-05-29] MEDS: Acetaminophen 325 MG Tab PO PRN ×2 (07:30→12:10)
[2020-05-29] MEDS: Insulin Lispro 100 Unit/ML 3 ML KwikPen SUBCUT SCH ×3 (07:54→11:38)
[2020-05-29] MEDS: Indacaterol/Glycopyrrolate 1 EA Cap.W.Dev Kit of 6 IH SCH (08:21)
[2020-05-29] MEDS: Pantoprazole 40 MG Tab.CR PO SCH (08:22)
[2020-05-29] MEDS: Spironolactone 25 MG Tab PO SCH (08:24)
[2020-05-29] MEDS: Aspirin 81 MG Tab.EC PO SCH (08:25)
[2020-05-29] MEDS: Lactobacillus Rhamnosus GG (Probiotic) Cap PO SCH (08:25)
[2020-05-29] MEDS: Isosorbide Mononitrate 30 MG Tab.ER PO SCH (08:26)
[2020-05-29] MEDS: Furosemide 40 MG Tab PO SCH (08:28)
[2020-05-29] MEDS: Metoprolol Tartrate 50 MG Tab PO SCH (08:29)
[2020-05-29] MEDS ORDERED: Potassium Chloride 20 MEQ Tab.ER PO ONE (08:30)
[2020-05-29] MEDS: Gabapentin 100 MG Cap PO SCH (08:33)
[2020-05-29] MEDS: amLODIPine 5 MG Tab PO SCH (08:34)
[2020-05-29] MEDS: Allopurinol 100 MG Tab PO SCH (08:35)
[2020-05-29] MEDS: Psyllium Husk Powder Sugar Free 5.85 GM Packet PO SCH (08:42)
[2020-05-29] MEDS ORDERED: Insulin Glargine,Human Rec. Analog 100 Units/ML 3 ML Pen SUBCUT SCH (09:00)
[2020-05-29] MEDS ORDERED: Insulin Glargine,Human Rec. Analog 100 Units/ML 3 ML Pen SUBCUT ONE (09:15)
[2020-05-29] MEDS: metFORMIN 500 MG Tab PO SCH (09:35)
[2020-05-29 11:19] VITALS: BP 102/72; PULSE 82
--- NOTE | 2020-05-29 11:25 | PCM.DCSUM1 ---
Discharge Summary - Hospital Course Brief History: Mr. Wells is an 85-year-old gentleman who was admitted through the emergency department with fever and weakness secondary to bilateral pneumonia. - Discharge Data Discharge Date: 05/29/20 Discharge Disposition: Home, Self-Care 01 Condition: Good - Referral to Home Health Primary Care Physician: Alber Carver MD - Discharge Diagnosis/Problem(s) (1) Bilateral pneumonia SNOMED Code(s): 062294299 ICD Code: J18.9 - PNEUMONIA, UNSPECIFIED ORGANISM Status: Acute Current Visit: Yes (2) Diabetes mellitus type 2 in obese SNOMED Code(s): 78929434 ICD Code: E11.9 - TYPE 2 DIABETES MELLITUS WITHOUT COMPLICATIONS; E66.9 - OBESITY, UNSPECIFIED Status: Chronic Current Visit: No (3) CKD (chronic kidney disease) SNOMED Code(s): 472435113 ICD Code: N18.9 - CHRONIC KIDNEY DISEASE, UNSPECIFIED Status: Chronic Current Visit: No (4) Chronic diastolic (congestive) heart failure SNOMED Code(s): 356292164, 253614119 ICD Code: I50.32 - CHRONIC DIASTOLIC (CONGESTIVE) HEART FAILURE Status: Chronic Current Visit: No - Patient Summary/Data Hospital Course: Mr. Wells is an 85-year-old gentleman who was admitted through the emergency department with chills, shortness of breath, and weakness, secondary to bilateral pneumonia. He was in his usual state of health until the evening. At night he noted symptoms of chills and since then is developed some weakness and increased shortness of breath from baseline. He does have a daily cough that is not significantly worse over the last 24 hours. Because of symptoms he presented to the emergency department for further evaluation. White blood cell count is found to be elevated with an associated elevation in CRP. Chest x-ray does show evidence of bibasilar infiltrates consistent with pneumonia. Testing for COVID 19 is negative. Blood cultures have been ordered as well as antibiotic therapy. Evaluation there was no evidence of significant sepsis. He was given IV fluids for hydration and started on IV antibiotic therapy with levofloxacin and ceftriaxone. He improved over the next few days of hospitalization and was feeling well at the time of discharge. He felt as though his cough and shortness of breath were at baseline. He had continued to experience some low-grade temperature elevations, his white blood cell count had normalized. He will take Tylenol at home if he has recurrent temperature elevations and has promised to return immediately to the emergency department if fevers do not resolve or he notes increase in symptoms. Blood glucose levels were monitored throughout hospital stay and insulin dosing was adjusted as needed. He did have some fluid overload on admission and did receive extra doses of furosemide while hospitalized. Activity will be as tolerated and he will remain on a low-sodium diabetic diet. Follow-up appointment will be scheduled with his primary care provider within 1 week. - Patient Instructions Diet: Diabetic Diet Activity: As Tolerated Other/Special Instructions: Please schedule follow-up appointment with primary care provider within 1 week. - Discharge Plan *PRESCRIPTION DRUG MONITORING PROGRAM REVIEWED*: Not Applicable *COPY OF PRESCRIPTION DRUG MONITORING REPORT IN PATIENT SHELLIE: Not Applicable Prescriptions/Med Rec: Lactobacillus Rhamnosus GG [Culturelle] 1 cap PO BID #60 cap levoFLOXacin [Levaquin] 750 mg PO Q48H #3 tab Home Medications: Home Meds Furosemide [Lasix] 80 mg PO DAILY 10/19/13 [History] Garlic 1,000 mg PO BID 10/19/13 [History] Insulin Glargine,Hum.Rec.Anlog [Lantus Solostar] 70 units SUBCUT DAILY 10/19/13 [History] Insulin Lispro [Humalog] 40 units SQ TID 10/19/13 [History] Isosorbide Mononitrate [Imdur] 30 mg PO DAILY 10/19/13 [History] Multivitamins 1 each PO DAILY 10/19/13 [History] Raccoon-3 Fatty Acids [Raccoon-3] 1,000 mg PO TID 10/19/13 [History] Psyllium Husk [Metamucil] 1 cap PO DAILY 10/19/13 [History] Rosuvastatin [Crestor] 20 mg PO BEDTIME 10/19/13 [History] Allopurinol [Zyloprim] 100 mg PO DAILY 09/22/15 [History] Cholecalciferol (Vitamin D3) [Vitamin D3] 2,000 unit PO BID 09/22/15 [History] Cinnamon Bark [Cinnamon] 1,000 mg PO BID 09/22/15 [History] Spironolactone [Aldactone] 25 mg PO DAILY 09/22/15 [History] Aspirin [Adult Low Dose Aspirin EC] 81 mg PO DAILY 01/29/18 [History] Metoprolol Tartrate [Lopressor] 50 mg PO DAILY 01/29/18 [History] Omeprazole 40 mg PO DAILY 01/29/18 [History] amLODIPine Besylate [Amlodipine Besylate] 5 mg PO BID 01/29/18 [History] Umeclidinium Brm/Vilanterol Tr [Anoro Ellipta 62.5-25 MCG] 1 puff INH DAILY 06/18/18 [History] metFORMIN [Glucophage] 500 mg PO BID 06/18/18 [History] Gabapentin [Neurontin] 100 mg PO TID 05/25/20 [History] Latanoprost [Xalatan 0.005% Ophth Soln] 1 drop EYEBOTH BEDTIME 05/25/20 [History] Metoprolol Tartrate [Lopressor] 25 mg PO BEDTIME 05/25/20 [History] Lactobacillus Rhamnosus GG [Culturelle] 1 cap PO BID #60 cap 05/29/20 [Rx] levoFLOXacin [Levaquin] 750 mg PO Q48H #3 tab 05/29/20 [Rx] Referrals: Alber Carver MD [Primary Care Provider] - 06/03/20 2:00 pm (Please arrive 15 minutes early to register for your appointment.) - Discharge Summary/Plan Comment DC Time >30 min.: No - Patient Data Vitals - Most Recent: Last Vital Signs Temp 97.7 F 05/29/20 11:18 Pulse 82 05/29/20 11:18 Resp 18 05/29/20 11:18 BP 102/72 05/29/20 11:18 Pulse Ox 95 05/29/20 11:18 Weight - Most Recent: 271 lb 12.8 oz I&O - Last 24 hours: Intake & Output 05/28/20 05/29/20 05/29/20 22:59 06:59 14:59 Intake Total 500 500 400 Output Total 600 800 Balance -100 -300 400 Lab Results - Last 24 hrs: Laboratory Results - last 24 hr 05/28/20 05/28/20 05/28/20 Range/Units 11:31 16:30 17:21 Potassium (3.6-5.2) mmol/L POC Glucose 147 H 56 L 58 L (74-106) MG/DL 05/28/20 05/28/20 05/29/20 Range/Units 18:30 19:49 04:20 Potassium 3.5 L (3.6-5.2) mmol/L POC Glucose 62 L 110 H (74-106) MG/DL 05/29/20 Range/Units 07:30 Potassium (3.6-5.2) mmol/L POC Glucose 99 (74-106) MG/DL [facility] Results - Last 24 hrs: Microbiology 05/25/20 18:40 Aerobic Blood Culture - Preliminary Blood - Arm, Right NO GROWTH AFTER 3 DAYS Anaerobic Blood Culture - Preliminary NO GROWTH AFTER 3 DAYS 05/25/20 18:44 Aerobic Blood Culture - Preliminary Blood - Arm, Right NO GROWTH AFTER 3 DAYS Anaerobic Blood Culture - Preliminary NO GROWTH AFTER 3 DAYS Med Orders - Current: Current Medications Acetaminophen (Tylenol) 650 mg PO Q4H PRN PRN Reason: Pain (Mild 1-3)/fever Last Admin: 05/29/20 07:30 Dose: 650 mg Documented by: Albuterol (Proventil Neb Soln) 2.5 mg NEB Q4H PRN PRN Reason: Shortness Of Breath/wheezing Last Admin: 05/27/20 04:19 Dose: 2.5 mg Documented by: Allopurinol (Zyloprim) 100 mg PO DAILY [facility] Last Admin: 05/29/20 08:35 Dose: 100 mg Documented by: Amlodipine Besylate (Norvasc) 5 mg PO BID [facility] Last Admin: 05/29/20 08:34 Dose: 5 mg Documented by: Aspirin (Halfprin) 81 mg PO DAILY [facility] Last Admin: 05/29/20 08:25 Dose: 81 mg Documented by: Dextrose (Glutose 15) 15 gm PO ONETIME PRN PRN Reason: Hypoglycemia Dextrose/Water (Dextrose 50% In Water) 50 ml IV ONETIME PRN PRN Reason: Hypoglycemia Enoxaparin Sodium (Lovenox) 40 mg SUBCUT Q24H [facility] Last Admin: 05/28/20 17:34 Dose: 40 mg Documented by: Furosemide (Lasix) 80 mg PO DAILY [facility] Last Admin: 05/29/20 08:28 Dose: 80 mg Documented by: Gabapentin (Neurontin) 100 mg PO TID [facility] Last Admin: 05/29/20 08:33 Dose: 100 mg Documented by: Glycopyrrolate/Indacaterol (Utibron Neohaler 27.5-15.6 Mcg) 0 each IH BIDRT [facility] Last Admin: 05/29/20 08:21 Dose: 1 inhalation Documented by: Ceftriaxone Sodium 1 gm/ (Sodium Chloride) 50 mls @ 100 mls/hr IV Q24H [facility] Last Admin: 05/28/20 17:38 Dose: 100 mls/hr Documented by: Levofloxacin/Dextrose 750 mg/ (Premix) 150 mls @ 100 mls/hr IV Q48H [facility] Last Admin: 05/27/20 18:56 Dose: 100 mls/hr Documented by: Influenza Virus Vaccine (Fluzone High-Dose Quad ) 240 mcg IM .ONCE ONE Stop: 05/29/20 12:01 Last Admin: 05/29/20 11:05 Dose: 240 mcg Documented by: Insulin Glargine (Lantus Solostar) 50 units SUBCUT DAILY [facility] Last Admin: 05/29/20 09:38 Dose: Not Given Documented by: Insulin Human Lispro (Humalog) 0 unit SUBCUT QIDACANDBED [facility]; Protocol Last Admin: 05/29/20 07:54 Dose: Not Given Documented by: Insulin Human Lispro (Humalog) 12 unit SUBCUT TIDMEALS [facility] Isosorbide Mononitrate (Imdur) 30 mg PO DAILY [facility] Last Admin: 05/29/20 08:26 Dose: 30 mg Documented by: Lactobacillus Rhamnosus (Culturelle) 1 cap PO BID [facility] Last Admin: 05/29/20 08:25 Dose: 1 cap Documented by: Latanoprost (Xalatan 0.005% [facility] Soln) 0 ml EYEBOTH BEDTIME [facility] Last Admin: 05/28/20 21:18 Dose: 1 drop Documented by: Metformin HCl (Glucophage) 500 mg PO BIDMEALS [facility] Last Admin: 05/29/20 09:35 Dose: 500 mg Documented by: Metoprolol Tartrate (Lopressor) 25 mg PO BEDTIME [facility] Last Admin: 05/28/20 21:16 Dose: 25 mg Documented by: Metoprolol Tartrate (Lopressor) 50 mg PO DAILY [facility] Last Admin: 05/29/20 08:29 Dose: 50 mg Documented by: Ondansetron HCl (Zofran) 4 mg IV Q4H PRN PRN Reason: Nausea/Vomiting Oxycodone HCl (Oxycodone) 5 mg PO Q4H PRN PRN Reason: Pain (moderate 4-6) Pantoprazole Sodium (Protonix) 40 mg PO ACBREAKFAST [facility] Last Admin: 05/29/20 08:22 Dose: 40 mg Documented by: Polyethylene Glycol (Miralax) 17 gm PO DAILY PRN PRN Reason: Constipation Psyllium Husk (Metamucil Sugar Free) 1 pkt PO DAILY [facility] Last Admin: 05/29/20 08:42 Dose: 1 pkt Documented by: Rosuvastatin Calcium (Crestor) 20 mg PO BEDTIME [facility] Last Admin: 05/28/20 21:16 Dose: 20 mg Documented by: Sodium Chloride (Saline Flush) 10 ml FLUSH ASDIRECTED PRN PRN Reason: Keep Vein Open Spironolactone (Aldactone) 25 mg PO DAILY [facility] Last Admin: 05/29/20 08:24 Dose: 25 mg Documented by: Discontinued Medications Enoxaparin Sodium (Lovenox) 40 mg SUBCUT DAILY [facility] Last Admin: 05/25/20 20:04 Dose: 40 mg Documented by: Furosemide (Lasix) 40 mg IVPUSH ONETIME ONE Stop: 05/27/20 13:01 Furosemide (Lasix) 40 mg IVPUSH ONETIME ONE Stop: 05/27/20 17:01 Last Admin: 05/27/20 18:50 Dose: 40 mg Documented by: Furosemide (Lasix) 40 mg IVPUSH NOW ONE Stop: 05/28/20 17:01 Last Admin: 05/28/20 16:40 Dose: 40 mg Documented by: Sodium Chloride (Normal Saline) 1,000 mls @ 75 mls/hr IV ASDIRECTED [facility] Last Admin: 05/26/20 10:14 Dose: 75 mls/hr Documented by: Insulin Glargine (Lantus Solostar) 70 units SUBCUT DAILY [facility] Last Admin: 05/28/20 09:05 Dose: 70 unit Documented by: Insulin Glargine (Lantus Solostar) 70 units SUBCUT ONETIME ONE Stop: 05/29/20 09:16 Last Admin: 05/29/20 08:55 Dose: 70 units Documented by: Insulin Human Lispro (Humalog) 40 unit SUBCUT TIDMEALS [facility] Last Admin: 05/29/20 09:06 Dose: Not Given Documented by: Potassium Chloride (Klor-Con M20) 40 meq PO ONETIME ONE Stop: 05/26/20 09:01 Last Admin: 05/26/20 09:19 Dose: 40 meq Documented by: Potassium Chloride (Klor-Con M20) 40 meq PO ONETIME ONE Stop: 05/27/20 09:01 Last Admin: 05/27/20 09:26 Dose: 40 meq Documented by: Potassium Chloride (Klor-Con M20) 40 meq PO ONETIME ONE Stop: 05/28/20 09:01 Last Admin: 05/28/20 09:09 Dose: 40 meq Documented by: Potassium Chloride (Klor-Con M20) 40 meq PO ONETIME ONE Stop: 05/28/20 17:01 Last Admin: 05/28/20 17:35 Dose: 40 meq Documented by: Potassium Chloride (Klor-Con M20) 40 meq PO ONETIME ONE Stop: 05/29/20 08:31 Last Admin: 05/29/20 09:35 Dose: 40 meq Documented by: - Exam General: Reports: Alert, Oriented, Cooperative, No Acute Distress Lungs: Reports: Clear to Auscultation, Normal Respiratory Effort Cardiovascular: Reports: Regular Rate, Regular Rhythm, No Murmurs GI/Abdominal Exam: Soft, Non-Tender, No Organomegaly, No Distention Extremities: Non-Tender, Pedal Edema
[2020-05-29] MEDS ORDERED: FLU Vacc QV2020-21(65YR UP)/PF 240 MCG/0.7 ML Syringe IM ONE (12:00)
[2020-05-29] MEDS ORDERED: Insulin Lispro 100 Unit/ML 3 ML KwikPen SUBCUT SCH (12:00)
[2020-06-04 01:11] LABS: IGG P18 AB. Present (.); IGG P23 AB. Absent (.); IGG P28 AB. Present (.); IGG P30 AB. Absent (.); IGG P39 AB. Present (.); IGG P41 AB. Present (.); IGG P45 AB. Absent (.); IGG P58 AB. Present (.); IGG P66 AB. Present (.); IGG P93 AB. Present (.); IGM P23 AB. Absent (.); IGM P39 AB. Absent (.); IGM P41 AB. Absent (.); LYME IGG WB INTERP. Positive (.); LYME IGG/IGM AB 2.73 ISR (0.00-0.90); LYME IGM WB INTERP. Negative (.)
== END 2020-05-29 12:30 | disposition home or self-care (01) | DRG 194 ==
LOC: JP.ED 13:05 → JP.MS 18:21
PROVIDERS: ADMIT Hospitalist; ATTEND Hospitalist
PROC: 3E0234Z Introduction of Serum, Toxoid and Vaccine into Muscle, Percutaneous Approach (ICD-10-PCS; principal; 2020-05-29)
DX: J18.9 Pneumonia, unspecified organism (principal); I50.32 Chronic diastolic (congestive) heart failure; I13.0 Hypertensive heart and chronic kidney disease with heart failure and stage 1 through stage 4 chronic kidney disease, or unspecified chronic kidney disease; E11.22 Type 2 diabetes mellitus with diabetic chronic kidney disease; Z66 Do not resuscitate; Z20.828 Contact with and (suspected) exposure to other viral communicable diseases; E66.9 Obesity, unspecified; E78.00 Pure hypercholesterolemia, unspecified; K21.9 Gastro-esophageal reflux disease without esophagitis; N18.31 Chronic kidney disease, stage 3a; Z88.2 Allergy status to sulfonamides; Z88.8 Allergy status to other drugs, medicaments and biological substances; Z79.4 Long term (current) use of insulin; Z79.82 Long term (current) use of aspirin; Z79.899 Other long term (current) drug therapy; I25.2 Old myocardial infarction; Z23 Encounter for immunization; Z68.38 Body mass index [BMI] 38.0-38.9, adult
CPT/HCPCS: 36415; 71046 ×2; 80053; 81001; 85025; 86140; 86617; 86618; 86666 ×2; 99284; 99285; U0002; 80048; 82962; 83735; 84132; 87040; 87804; 87804-59; 90662; 94640; 99221-AI; 99232; 99238; A9270-GY; G0008; J0696; J1650; J1815; J1815-GY; J1940; J1956; J7030; J7050